=== PATIENT | male | born 1950 | race American Indian/Alaskan Native ===

== ENCOUNTER 2017-05-12 13:28 | Inpatient (IN) | payer MEDICARE, MEDICAID ==
[2017-05-12 13:32] VITALS: BMI 24.4
[2017-05-12] MEDS ORDERED: Sodium Chloride 0.9% 1,000 ML IV STA (13:33)
--- NOTE | 2017-05-12 14:04 | ED PDOC ---
HPI:Nausea, Vomiting, Diarrhea Time Seen by Provider: 05/12/17 13:33 Chief Complaint (Nursing): GI Problem Chief Complaint (Provider): vomiting, weakness History Per: EMS, Other (MD paperwork) History/Exam Limitations: other (MD paperwork is blank on arrival) Current Symptoms Are (Timing): Still Present Quality Of Discomfort: Unable To Describe Associated Symptoms: Vomiting Additional Complaint(s): 66yo male arrives from rehab facility EMS reported vomiting several episodes with generalized weakness. Patient is nonverbal s/p CVA, will answer with gestures, denies abdominal pain, headache or chest pain. History is limited as MD paperwork was blank on arrival. Past Medical History Reviewed: Historical Data, Nursing Documentation, Vital Signs Vital Signs: Last Vital Signs Temp 98.5 F 05/12/17 13:31 Pulse 89 05/12/17 13:31 Resp 17 05/12/17 13:31 BP 110/53 L 05/12/17 13:31 Pulse Ox 96 05/12/17 13:31 - Medical History PMH: CVA, Diabetes, HTN - Surgical History Other surgeries: PEG - Family History Family History: States: Unknown Family Hx - Living Arrangements Living Arrangements: Correction/Assist Lvng - Social History Current smoker - smoking cessation education provided: No - Home Medications Home Medications: Ambulatory Orders Medication Instructions Recorded Acetaminophen [Tylenol 325mg tab] 650 mg GT Q4H PRN 05/12/17 Acetaminophen [Tylenol 325mg tab] 650 mg GT Q4H PRN 05/12/17 Aspirin [Aspirin] 325 mg GT DAILY 05/12/17 Carvedilol [Coreg] 12.5 mg GT Q12H 05/12/17 Escitalopram [Lexapro] 5 mg GT DAILY 05/12/17 Heparin [Heparin] 5,000 unit SC Q8H 05/12/17 Insulin Lispro [humALOG] 2 - 10 unit SC ACHS 05/12/17 Lisinopril [Zestril] 20 mg GT DAILY 05/12/17 Mag Hydrox/Aluminum Hyd/Simeth 30 ml PO Q4H PRN 05/12/17 [Maalox Advanced Suspension] Magnesium Hydroxide [Milk Of 30 ml PO DAILY PRN 05/12/17 Magnesia] Pantoprazole Sodium [Protonix] 40 mg GT DAILY 05/12/17 Rosuvastatin Calcium [Crestor] 10 mg GT HS 05/12/17 Silver Sulfadiazine 1% [Silvadene 1 appl TOP QSHIFT 05/12/17 1%] amLODIPine [Norvasc] 10 mg GT DAILY 05/12/17 levoFLOXacin [Levaquin] 750 mg GT QPM 05/12/17 - Allergies Allergies/Adverse Reactions: Allergies Allergy/AdvReac Type Severity Reaction Status Date / Time No Known Allergies Allergy Verified 05/12/17 13:29 Review of Systems Review Of Systems: ROS cannot be obtained secondary to pt's inabilty to answer questions. Physical Exam - Reviewed Nursing Documentation Reviewed: Yes Vital Signs Reviewed: Yes - Physical Exam Appears: Positive for: Non-toxic, Uncomfortable (generalized weakness) Head Exam: Positive for: ATRAUMATIC, NORMAL INSPECTION, NORMOCEPHALIC Skin: Positive for: Warm, Pallor Eye Exam: Positive for: EOMI, Normal appearance, PERRL ENT: Positive for: Normal ENT Inspection Neck: Positive for: Normal, Painless ROM Cardiovascular/Chest: Positive for: Regular Rate, Rhythm Respiratory: Positive for: CNT, Normal Breath Sounds Gastrointestinal/Abdominal: Positive for: Bowel Sounds, Soft, Other (peg). Negative for: Tenderness Back: Positive for: Normal Inspection Extremity: Negative for: Deformity, Swelling Neurologic/Psych: Positive for: Alert, Motor/Sensory Deficits (R hemiparess), Mood/Affect (flat), Aphasia - ECG O2 Sat by Pulse Oximetry: 96 Medical Decision Making Medical Decision Making: workup for vomiting w generalized weakness Labs from MD reviewed 05/09 reveal Hgb in mid 8's. Type/screen ordered IVF bolus, labs, lactate, EKG, CXR ordered/ Disposition - Disposition
[2017-05-12 14:12] LABS: VENOUS BLOOD GAS BASE EXCESS 15.7 mmol/L (0.0-2.0); VENOUS BLOOD GAS PCO2 51 mmHg (40-60); VENOUS BLOOD GAS PO2 37 mm/Hg (30-55); VENOUS BLOOD PH 7.51 (7.32-7.43)
[2017-05-12 14:19] LABS: BASO % 0.4 % (0.0-2.0); EOS % 0.3 % (0.0-4.0); HEMOGLOBIN 9.5 g/dL (12.0-18.0); LYMPH # 1.3 K/uL (1.0-4.3); LYMPH % 13.2 % (20.0-40.0); MEAN CELL VOLUME 94.4 fl (80.0-94.0); MEAN CORPUSCULAR HEMOGLOBIN 31.2 pg (27.0-31.0); MEAN CORPUSCULAR HGB CONC 33.1 g/dL (33.0-37.0); MEAN PLATELET VOLUME 8.3 fl (7.2-11.7); MONO # 0.7 K/uL (0.0-0.8); MONO % 7.3 % (0.0-10.0); NEUT # 7.8 K/uL (1.8-7.0); NEUT % 78.8 % (50.0-75.0); RBC 3.05 Mil/uL (4.40-5.90); RED CELL DISTRIBUTION WIDTH 13.3 % (11.5-14.5); WHITE BLOOD COUNT 9.9 K/uL (4.8-10.8)
[2017-05-12 14:30] LABS: INR 1.3 (0.9-1.2); PARTIAL THROMBOPLASTIN TIME 35.3 Seconds (25.6-37.1); PROTHROMBIN TIME 14.1 Seconds (9.8-13.1)
[2017-05-12 15:12] LABS: URINE BACTERIA RARE (<OCC); URINE BILIRUBIN NEGATIVE (NEGATIVE); URINE BLOOD NEGATIVE (NEGATIVE); URINE CLARITY CLOUDY (Clear); URINE COLOR AMBER (YELLOW); URINE GLUCOSE (UA) 50 mg/dL (Normal); URINE LEUKOCYTE ESTERASE NEG Leu/uL (Negative); URINE NITRATE NEGATIVE (NEGATIVE); URINE PROTEIN 30 mg/dL (NEGATIVE)
--- NOTE | 2017-05-12 16:12 | RAD ---
HISTORY: Weakness. Portable study 13:45 COMPARISON: No prior. FINDINGS: LUNGS: Faint infiltrates right upper lobe, right lower lobe. PLEURA: No significant pleural effusion identified, no pneumothorax apparent. CARDIOVASCULAR: No radiographic findings to suggest acute or significant cardiovascular disease. OSSEOUS STRUCTURES: No significant abnormalities. VISUALIZED UPPER ABDOMEN: Normal. OTHER FINDINGS: None. IMPRESSION: Infiltrates right upper lobe, right lower lobe. Otherwise unremarkable study.
[2017-05-12 16:28] LABS: ALB/GLOB RATIO 0.8 (1.0-2.1); ALBUMIN 3.6 g/dL (3.5-5.0)
[2017-05-12 16:36] LABS: TROPONIN I 0.019 ng/mL (0.00-0.120)
[2017-05-12] MEDS ORDERED: Alum-Mag Hydrox-Simethicone Susp (30 mL) PO PRN (18:41)
[2017-05-12] MEDS ORDERED: Magnesium Hydroxide Susp 30 ml UD PO PRN (18:41)
--- NOTE | 2017-05-12 19:42 | US ---
EXAM: US Abdomen Limited, Right Upper Quadrant EXAM DATE/TIME: 05/12/2017 4:34 PM CLINICAL HISTORY: 66 years old, male; Signs and symptoms; Vomiting; Additional info: Vomiting abnormal lfts TECHNIQUE: Real-time ultrasound of the right upper quadrant with image documentation. COMPARISON: There are no prior studies for comparison. FINDINGS: Liver: There is hepatopedal flow in the main portal vein. Liver is unremarkable. Gallbladder: Gallbladder is completely distended. Gallbladder wall measures approximately 3 mm in width. There are no large shadowing stones. There is no sludge.. Common bile duct: Common bile duct measures 8 mm in the ricci hepatis. Pancreas: Pancreas is partially obscured by bowel gas. Pancreatic duct is partially visualized. Duct measures approximately 2 mm in diameter. Right kidney: Right kidney is unremarkable. Aorta: Visualized portions of the aorta and inferior vena cava are unremarkable. IMPRESSION: Slightly limited evaluation of the gallbladder due to incomplete distention, gallbladder wall thickening, underdistention versus true thickening, no shadowing stones; mildly prominent common duct Patient was not tender over the gallbladder
[2017-05-12] MEDS: Sodium Chloride 0.9% 1,000 ML IV SCH (20:49)
--- NOTE | 2017-05-12 20:59 | CP.PCM.CON ---
<PacotameraVasquez - Last Filed: 05/12/17 20:57> History of Present Illness - History of Present Illness History of Present Illness: General Surgery Consult for Dr. Fernandez This is a 66M averbal s/p CVA who was admitted for abdominal pain which is now resolved. He only communicated via nods. He denies any pain, fevers, chills nause, vomiting diarrhea. Per nursing he has a history of HTN, cared for by his daughter. PMH: HTN possibly more PSH: PEG ALL: unknown Review of Systems - Review of Systems All systems: reviewed and no additional remarkable complaints except - Constitutional Constitutional: absent: Anorexia, Chills - Gastrointestinal Gastrointestinal: absent: Abdominal Pain, Diarrhea, Loose Stools, Nausea, Vomiting Past Patient History - Past Social History Smoking Status: Unknown If Ever Smoked - CARDIAC Hx Hypertension: Yes - NEUROLOGICAL HX Cerebrovascular Accident: Yes - ENDOCRINE/METABOLIC Hx Endocrine Disorders: Yes - PSYCHIATRIC Hx Substance Use: No - SURGICAL HISTORY Hx Surgeries: No Other/Comment: gt - ANESTHESIA Hx Anesthesia: Yes Meds Allergies/Adverse Reactions: Allergies Allergy/AdvReac Type Severity Reaction Status Date / Time No Known Allergies Allergy Verified 05/12/17 13:29 - Medications Medications: Current Medications Acetaminophen (Tylenol 325mg Tab) 650 mg GT Q4H PRN PRN Reason: Temp >100 Acetaminophen (Tylenol 325mg Tab) 650 mg GT Q4H PRN PRN Reason: Pain, Mild (1-3) Al Hydrox/Mg Hydrox/Simethicone (Maalox Plus 30 Ml) 30 ml PO Q4H PRN PRN Reason: heartburn/indigestion Amlodipine Besylate (Norvasc) 10 mg GT DAILY [facility] Aspirin (Aspirin) 325 mg GT DAILY [facility] Atorvastatin Calcium (Lipitor) 20 mg GT HS [facility] Carvedilol (Coreg) 12.5 mg GT Q12H [facility] Escitalopram Oxalate (Lexapro) 5 mg GT DAILY [facility] Famotidine (Pepcid) 20 mg IVP Q12 [facility] Heparin Sodium (Porcine) (Heparin) 5,000 units SC Q8H [facility] PRN Reason: Protocol Sodium Chloride (Sodium Chloride 0.9%) 1,000 mls @ 125 mls/hr IV .Q8H DIMITRY Stop: 05/13/17 18:32 Last Admin: 01/23/18 20:49 Dose: 125 mls/hr Insulin Human Lispro (Humalog) 0 units SC ACHS DIMITRY PRN Reason: Protocol Levofloxacin (Levaquin) 750 mg PO QPM [facility] Lisinopril (Zestril) 20 mg GT DAILY [facility] Magnesium Hydroxide (Milk Of Magnesia) 30 ml PO DAILY PRN PRN Reason: Constipation Ondansetron HCl (Zofran Inj) 4 mg IVP Q6 PRN PRN Reason: Nausea/Vomiting Pantoprazole Sodium (Protonix Inj) 40 mg IVP DAILY [facility] Silver Sulfadiazine (Silvadene 1% 20 Gm) 1 ea TOP QSHIFT [facility] Physical Exam - Constitutional Appears: Non-toxic - Head Exam Head Exam: ATRAUMATIC, NORMOCEPHALIC Additional comments: Left sided droop - Respiratory Exam Respiratory Exam: NORMAL BREATHING PATTERN - Cardiovascular Exam Cardiovascular Exam: +S1, +S2 - GI/Abdominal Exam GI & Abdominal Exam: Soft. absent: Distended, Guarding, Tenderness Additional comments: No murphys, peg present Results - Vital Signs Recent Vital Signs: Last Vital Signs Temp 98.1 F 05/12/17 18:56 Pulse 89 05/12/17 18:56 Resp 20 05/12/17 18:56 BP 144/69 05/12/17 18:56 Pulse Ox 100 05/12/17 18:56 - Labs Result Diagrams: 05/12/17 13:55 05/12/17 15:10 Labs: Laboratory Results - last 24 hr 05/12/17 05/12/17 05/12/17 13:45 13:51 13:55 WBC 9.9 RBC 3.05 L Hgb 9.5 L Hct 28.8 L MCV 94.4 H MCH 31.2 H MCHC 33.1 RDW 13.3 Plt Count 299 MPV 8.3 Neut % (Auto) 78.8 H Lymph % (Auto) 13.2 L [place] % (Auto) 7.3 Eos % (Auto) 0.3 Baso % (Auto) 0.4 Neut # 7.8 H Lymph # 1.3 [place] # 0.7 Eos # 0.0 Baso # 0.0 PT INR APTT pO2 37 VBG pH 7.51 H VBG pCO2 51 VBG HCO3 36.6 VBG Total CO2 42.3 H VBG O2 Sat (Calc) 75.3 H VBG Base Excess 15.7 H VBG Potassium 5.6 H Sodium 135.0 Chloride 102.0 Glucose 331 H Lactate 2.1 FiO2 21.0 Potassium Carbon Dioxide Anion Gap BUN Creatinine Est GFR ( Amer) Est GFR (Non-Af Amer) POC Glucose (mg/dL) 291 H Random Glucose Calcium Total Bilirubin AST ALT Alkaline Phosphatase Troponin I Total Protein Albumin Globulin Albumin/Globulin Ratio Lipase Venous Blood Potassium 5.6 H Urine Color Urine Clarity Urine pH Ur Specific [place] Urine Protein Urine Glucose (UA) Urine Ketones Urine Blood Urine Nitrate Urine Bilirubin Urine Urobilinogen Ur Leukocyte Esterase Urine RBC (Auto) Urine Microscopic WBC Urine Bacteria Hyaline Casts Blood Type Antibody Screen BBK History Checked 05/12/17 05/12/17 05/12/17 13:55 14:14 14:54 WBC RBC Hgb Hct MCV MCH MCHC RDW Plt Count MPV Neut % (Auto) Lymph % (Auto) [place] % (Auto) Eos % (Auto) Baso % (Auto) Neut # Lymph # [place] # Eos # Baso # PT 14.1 H INR 1.3 H APTT 35.3 pO2 VBG pH VBG pCO2 VBG HCO3 VBG Total CO2 VBG O2 Sat (Calc) VBG Base Excess VBG Potassium Sodium Chloride Glucose Lactate FiO2 Potassium Carbon Dioxide Anion Gap BUN Creatinine Est GFR ( Amer) Est GFR (Non-Af Amer) POC Glucose (mg/dL) Random Glucose Calcium Total Bilirubin AST ALT Alkaline Phosphatase Troponin I Total Protein Albumin Globulin Albumin/Globulin Ratio Lipase Venous Blood Potassium Urine Color Elisa Urine Clarity Cloudy Urine pH 7.0 Ur Specific [place] 1.019 Urine Protein 30 Urine Glucose (UA) 50 Urine Ketones Negative Urine Blood Negative Urine Nitrate Negative Urine Bilirubin Negative Urine Urobilinogen 4.0 Ur Leukocyte Esterase Neg Urine RBC (Auto) 7 H Urine Microscopic WBC 5 Urine Bacteria Rare Hyaline Casts 6-10 H Blood Type B POSITIVE Antibody Screen Negative BBK History Checked Patient has bt 05/12/17 15:10 WBC RBC Hgb Hct MCV MCH MCHC RDW Plt Count MPV Neut % (Auto) Lymph % (Auto) [place] % (Auto) Eos % (Auto) Baso % (Auto) Neut # Lymph # [place] # Eos # Baso # PT INR APTT pO2 VBG pH VBG pCO2 VBG HCO3 VBG Total CO2 VBG O2 Sat (Calc) VBG Base Excess VBG Potassium Sodium 140 Chloride 94 L Glucose Lactate FiO2 Potassium 5.1 H Carbon Dioxide 33 H Anion Gap 18 BUN 46 H Creatinine 1.7 H Est GFR ( Amer) 49 Est GFR (Non-Af Amer) 41 POC Glucose (mg/dL) Random Glucose 313 H Calcium 10.0 Total Bilirubin 1.2 AST 259 H D ALT 252 H Alkaline Phosphatase 874 H D Troponin I 0.0190 Total Protein 8.2 Albumin 3.6 Globulin 4.5 H Albumin/Globulin Ratio 0.8 L Lipase 4912 H Venous Blood Potassium Urine Color Urine Clarity Urine pH Ur Specific [place] Urine Protein Urine Glucose (UA) Urine Ketones Urine Blood Urine Nitrate Urine Bilirubin Urine Urobilinogen Ur Leukocyte Esterase Urine RBC (Auto) Urine Microscopic WBC Urine Bacteria Hyaline Casts Blood Type Antibody Screen BBK History Checked Assessment & Plan - Assessment and Plan (Free Text) Assessment: 66M with pancreatitis US shows inderterminent evaluation of GB and ducts with no stones MRCP ordered will follow up D/W Dr. Jim Pineda PGY2 <Temo Fernandez - Last Filed: 05/13/17 14:53> History of Present Illness - History of Present Illness History of Present Illness: Patient was seen and examined at the bedside. Agree with resident's note above. Meds - Medications Medications: Current Medications Acetaminophen (Tylenol 325mg Tab) 650 mg GT Q4H PRN PRN Reason: Temp >100 Acetaminophen (Tylenol 325mg Tab) 650 mg GT Q4H PRN PRN Reason: Pain, Mild (1-3) Al Hydrox/Mg Hydrox/Simethicone (Maalox Plus 30 Ml) 30 ml PO Q4H PRN PRN Reason: heartburn/indigestion Amlodipine Besylate (Norvasc) 10 mg GT DAILY [facility] Last Admin: 05/13/17 08:54 Dose: 10 mg Aspirin (Aspirin) 325 mg GT DAILY [facility] Atorvastatin Calcium (Lipitor) 20 mg GT HS [facility] Last Admin: 05/12/17 21:03 Dose: 20 mg Carvedilol (Coreg) 12.5 mg GT Q12H [facility] Last Admin: 05/13/17 06:39 Dose: 12.5 mg Escitalopram Oxalate (Lexapro) 5 mg GT DAILY [facility] Last Admin: 05/13/17 08:53 Dose: 5 mg Famotidine (Pepcid) 20 mg IVP Q12 [facility] Last Admin: 05/13/17 09:04 Dose: 20 mg Heparin Sodium (Porcine) (Heparin) 5,000 units SC Q8H [facility] PRN Reason: Protocol Last Admin: 05/13/17 03:45 Dose: 5,000 units Sodium Chloride (Sodium Chloride 0.9%) 1,000 mls @ 125 mls/hr IV .Q8H [facility] Stop: 05/13/17 18:32 Last Admin: 05/13/17 03:50 Dose: 125 mls/hr Insulin Human Lispro (Humalog) 0 units SC ACHS [facility] PRN Reason: Protocol Last Admin: 05/13/17 08:55 Dose: Not Given Levofloxacin (Levaquin) 750 mg PO QPM [facility] Lisinopril (Zestril) 20 mg GT DAILY [facility] Last Admin: 05/13/17 08:54 Dose: 20 mg Magnesium Hydroxide (Milk Of Magnesia) 30 ml PO DAILY PRN PRN Reason: Constipation Ondansetron HCl (Zofran Inj) 4 mg IVP Q6 PRN PRN Reason: Nausea/Vomiting Pantoprazole Sodium (Protonix Inj) 40 mg IVP DAILY [facility] Last Admin: 05/13/17 08:53 Dose: 40 mg Silver Sulfadiazine (Silvadene 1% 20 Gm) 1 ea TOP QSHIFT [facility] Results - Vital Signs Recent Vital Signs: Last Vital Signs Temp 97.9 F 05/13/17 08:05 Pulse 75 05/13/17 08:54 Resp 20 05/13/17 08:05 BP 148/76 05/13/17 08:54 Pulse Ox 96 05/13/17 08:05 - Labs Result Diagrams: 05/13/17 05:45 05/13/17 05:45 Labs: Laboratory Results - last 24 hr 05/12/17 05/12/17 05/12/17 13:51 14:14 14:54 WBC RBC Hgb Hct MCV MCH MCHC RDW Plt Count MPV Neut % (Auto) Lymph % (Auto) [place] % (Auto) Eos % (Auto) Baso % (Auto) Neut # Lymph # [place] # Eos # Baso # Sodium Potassium Chloride Carbon Dioxide Anion Gap BUN Creatinine Est GFR ( Amer) Est GFR (Non-Af Amer) POC Glucose (mg/dL) 291 H Random Glucose Calcium Total Bilirubin AST ALT Alkaline Phosphatase Troponin I Total Protein Albumin Globulin Albumin/Globulin Ratio Lipase Urine Color Elisa Urine Clarity Cloudy Urine pH 7.0 Ur Specific [place] 1.019 Urine Protein 30 Urine Glucose (UA) 50 Urine Ketones Negative Urine Blood Negative Urine Nitrate Negative Urine Bilirubin Negative Urine Urobilinogen 4.0 Ur Leukocyte Esterase Neg Urine RBC (Auto) 7 H Urine Microscopic WBC 5 Urine Bacteria Rare Hyaline Casts 6-10 H Blood Type B POSITIVE Antibody Screen Negative BBK History Checked Patient has bt 05/12/17 05/12/17 05/13/17 15:10 21:21 05:45 WBC 7.6 RBC 2.77 L Hgb 8.7 L Hct 26.6 L MCV 95.9 H MCH 31.4 H MCHC 32.8 L RDW 13.3 Plt Count 249 MPV 8.6 Neut % (Auto) 74.2 Lymph % (Auto) 14.6 L [place] % (Auto) 8.1 Eos % (Auto) 2.6 Baso % (Auto) 0.5 Neut # 5.6 Lymph # 1.1 [place] # 0.6 Eos # 0.2 Baso # 0.0 Sodium 140 Potassium 5.1 H Chloride 94 L Carbon Dioxide 33 H Anion Gap 18 BUN 46 H Creatinine 1.7 H Est GFR ( Amer) 49 Est GFR (Non-Af Amer) 41 POC Glucose (mg/dL) 238 H Random Glucose 313 H Calcium 10.0 Total Bilirubin 1.2 AST 259 H D ALT 252 H Alkaline Phosphatase 874 H D Troponin I 0.0190 Total Protein 8.2 Albumin 3.6 Globulin 4.5 H Albumin/Globulin Ratio 0.8 L Lipase 4912 H Urine Color Urine Clarity Urine pH Ur Specific [place] Urine Protein Urine Glucose (UA) Urine Ketones Urine Blood Urine Nitrate Urine Bilirubin Urine Urobilinogen Ur Leukocyte Esterase Urine RBC (Auto) Urine Microscopic WBC Urine Bacteria Hyaline Casts Blood Type Antibody Screen BBK History Checked 05/13/17 05/13/17 05:45 05:45 WBC RBC Hgb Hct MCV MCH MCHC RDW Plt Count MPV Neut % (Auto) Lymph % (Auto) [place] % (Auto) Eos % (Auto) Baso % (Auto) Neut # Lymph # [place] # Eos # Baso # Sodium 143 Potassium 4.4 Chloride 101 Carbon Dioxide 32 H Anion Gap 14 BUN 39 H Creatinine 1.2 Est GFR ( Amer) > 60 Est GFR (Non-Af Amer) > 60 POC Glucose (mg/dL) 240 H Random Glucose 239 H Calcium 9.3 Total Bilirubin 1.3 AST 190 H D ALT 223 H Alkaline Phosphatase 733 H Troponin I Total Protein 7.3 Albumin 3.2 L Globulin 4.1 H Albumin/Globulin Ratio 0.8 L Lipase 4155 H Urine Color Urine Clarity Urine pH Ur Specific [place] Urine Protein Urine Glucose (UA) Urine Ketones Urine Blood Urine Nitrate Urine Bilirubin Urine Urobilinogen Ur Leukocyte Esterase Urine RBC (Auto) Urine Microscopic WBC Urine Bacteria Hyaline Casts Blood Type Antibody Screen BBK History Checked - Imaging and Cardiology US - abdomen Status: Image reviewed by me, Report reviewed by me Assessment & Plan - Assessment and Plan (Free Text) Plan: - Keep NPO - IV fluids - MRCP - Repeat labs in am - Will follow
[2017-05-12] MEDS: Insulin Lispro (humaLOG) 100 Units/ml Inj SC SCH (21:56)
[2017-05-13] MEDS: Sodium Chloride 0.9% 1,000 ML IV SCH ×2 (03:50→10:28)
[2017-05-13 06:38] LABS: ALB/GLOB RATIO 0.8 (1.0-2.1); ALBUMIN 3.2 g/dL (3.5-5.0); ALT/SGPT 223 U/L (21-72); AST/SGOT 190 U/L (17-59); BASO % 0.5 % (0.0-2.0); BLOOD UREA NITROGEN 39 mg/dl (9-20); CALCIUM 9.3 mg/dL (8.4-10.2); EOS # 0.2 K/uL (0.0-0.7); EOS % 2.6 % (0.0-4.0); GFR AFRICAN-AMERICAN > 60; GFR NON-AFRICAN AMERICAN > 60; HEMOGLOBIN 8.7 g/dL (12.0-18.0); LYMPH # 1.1 K/uL (1.0-4.3); LYMPH % 14.6 % (20.0-40.0); MEAN CELL VOLUME 95.9 fl (80.0-94.0); MEAN CORPUSCULAR HEMOGLOBIN 31.4 pg (27.0-31.0); MEAN CORPUSCULAR HGB CONC 32.8 g/dL (33.0-37.0); MEAN PLATELET VOLUME 8.6 fl (7.2-11.7); MONO # 0.6 K/uL (0.0-0.8); MONO % 8.1 % (0.0-10.0); NEUT # 5.6 K/uL (1.8-7.0); NEUT % 74.2 % (50.0-75.0); RBC 2.77 Mil/uL (4.40-5.90); RED CELL DISTRIBUTION WIDTH 13.3 % (11.5-14.5); WHITE BLOOD COUNT 7.6 K/uL (4.8-10.8)
[2017-05-13 07:02] LABS: LIPASE 4155 U/L (23-300)
[2017-05-13] MEDS: Insulin Lispro (humaLOG) 100 Units/ml Inj SC SCH ×4 (08:55→21:43)
[2017-05-13] MEDS ORDERED: Pantoprazole 40 mg EC Tab PO SCH (09:00)
--- NOTE | 2017-05-13 11:08 | CARD ---
APPROVED REPORT EKG Measurement Heart [id number] <Conclusion> Normal sinus rhythm Possible Left atrial enlargement Left ventricular hypertrophy T wave abnormality, consider lateral ischemia Prolonged QT Abnormal ECG
--- NOTE | 2017-05-13 12:03 | CP.PCM.PN ---
<Aleja Chapa - Last Filed: 05/13/17 12:01> Subjective - Date & Time of Evaluation Date of Evaluation: 05/13/17 Time of Evaluation: 10:30 - Subjective Subjective: General surgery consult for Dr. Fernandez-Aleja Chaap, PGY-1 Pt S & E at bedside. Pt sleeping, unarousable to verbal or tactile stimuli. Per nursing- no acute events overnight, this is pt's baseline arousability. Objective - Vital Signs/Intake and Output Vital Signs (last 24 hours): Temp Pulse Resp BP Pulse Ox 97.9 F 75 20 148/76 96 05/13/17 08:05 05/13/17 08:54 05/13/17 08:05 05/13/17 08:54 05/13/17 08:05 - Medications Medications: Current Medications Acetaminophen (Tylenol 325mg Tab) 650 mg GT Q4H PRN PRN Reason: Temp >100 Acetaminophen (Tylenol 325mg Tab) 650 mg GT Q4H PRN PRN Reason: Pain, Mild (1-3) Al Hydrox/Mg Hydrox/Simethicone (Maalox Plus 30 Ml) 30 ml PO Q4H PRN PRN Reason: heartburn/indigestion Amlodipine Besylate (Norvasc) 10 mg GT DAILY REPLACED BY [facility] Last Admin: 05/13/17 08:54 Dose: 10 mg Aspirin (Aspirin) 325 mg GT DAILY REPLACED BY [facility] Atorvastatin Calcium (Lipitor) 20 mg GT HS REPLACED BY [facility] Last Admin: 05/12/17 21:03 Dose: 20 mg Carvedilol (Coreg) 12.5 mg GT Q12H REPLACED BY [facility] Last Admin: 05/13/17 06:39 Dose: 12.5 mg Escitalopram Oxalate (Lexapro) 5 mg GT DAILY REPLACED BY [facility] Last Admin: 05/13/17 08:53 Dose: 5 mg Famotidine (Pepcid) 20 mg IVP Q12 REPLACED BY [facility] Last Admin: 05/13/17 09:04 Dose: 20 mg Heparin Sodium (Porcine) (Heparin) 5,000 units SC Q8H REPLACED BY [facility] PRN Reason: Protocol Last Admin: 05/13/17 03:45 Dose: 5,000 units Sodium Chloride (Sodium Chloride 0.9%) 1,000 mls @ 125 mls/hr IV .Q8H REPLACED BY [facility] Stop: 05/13/17 18:32 Last Admin: 05/13/17 03:50 Dose: 125 mls/hr Insulin Human Lispro (Humalog) 0 units SC ACHS REPLACED BY [facility] PRN Reason: Protocol Last Admin: 05/13/17 08:55 Dose: Not Given Levofloxacin (Levaquin) 750 mg PO QPM REPLACED BY [facility] Lisinopril (Zestril) 20 mg GT DAILY REPLACED BY [facility] Last Admin: 05/13/17 08:54 Dose: 20 mg Magnesium Hydroxide (Milk Of Magnesia) 30 ml PO DAILY PRN PRN Reason: Constipation Ondansetron HCl (Zofran Inj) 4 mg IVP Q6 PRN PRN Reason: Nausea/Vomiting Pantoprazole Sodium (Protonix Inj) 40 mg IVP DAILY REPLACED BY [facility] Last Admin: 05/13/17 08:53 Dose: 40 mg Silver Sulfadiazine (Silvadene 1% 20 Gm) 1 ea TOP QSHIFT REPLACED BY [facility] - Labs Labs: 05/13/17 05:45 05/13/17 05:45 PT 14.1 Seconds (9.8-13.1) H 05/12/17 13:55 INR 1.3 (0.9-1.2) H 05/12/17 13:55 APTT 35.3 Seconds (25.6-37.1) 05/12/17 13:55 - Constitutional Appears: Non-toxic, No Acute Distress - Head Exam Head Exam: ATRAUMATIC, NORMAL INSPECTION, NORMOCEPHALIC - ENT Exam ENT Exam: Mucous Membranes Moist, Normal Exam - Neck Exam Neck Exam: Full ROM, Normal Inspection - Respiratory Exam Respiratory Exam: NORMAL BREATHING PATTERN - Cardiovascular Exam Cardiovascular Exam: REGULAR RHYTHM, +S1, +S2 - GI/Abdominal Exam GI & Abdominal Exam: Soft. absent: Distended, Firm, Guarding, Rigid, Tenderness Additional comments: PEG tube in place - Extremities Exam Extremities Exam: Normal Inspection - Neurological Exam Neurological Exam: absent: Alert, Awake, Oriented x3 Additional comments: unarousable to verbal or tactile stimuli - Psychiatric Exam Psychiatric exam: absent: Normal Affect, Normal Mood - Skin Skin Exam: Dry, Intact, Normal Color, Warm Assessment and Plan - Assessment and Plan (Free Text) Assessment: 66M with pancreatitis Plan: FU MRCP Further recs pending imaging Will DW attending Sammi, PGY-1 <Temo Fernandez - Last Filed: 05/13/17 14:58> Subjective - Date & Time of Evaluation Time of Evaluation: 12:30 - Subjective Subjective: Patient was seen and examined at the bedside. Agree with resident's note above. Objective - Vital Signs/Intake and Output Vital Signs (last 24 hours): Temp Pulse Resp BP Pulse Ox 97.9 F 75 20 148/76 96 05/13/17 08:05 05/13/17 08:54 05/13/17 08:05 05/13/17 08:54 05/13/17 08:05 - Medications Medications: Current Medications Acetaminophen (Tylenol 325mg Tab) 650 mg GT Q4H PRN PRN Reason: Temp >100 Acetaminophen (Tylenol 325mg Tab) 650 mg GT Q4H PRN PRN Reason: Pain, Mild (1-3) Al Hydrox/Mg Hydrox/Simethicone (Maalox Plus 30 Ml) 30 ml PO Q4H PRN PRN Reason: heartburn/indigestion Amlodipine Besylate (Norvasc) 10 mg GT DAILY REPLACED BY [facility] Last Admin: 05/13/17 08:54 Dose: 10 mg Aspirin (Aspirin) 325 mg GT DAILY REPLACED BY [facility] Atorvastatin Calcium (Lipitor) 20 mg GT HS REPLACED BY [facility] Last Admin: 05/12/17 21:03 Dose: 20 mg Carvedilol (Coreg) 12.5 mg GT Q12H REPLACED BY [facility] Last Admin: 05/13/17 06:39 Dose: 12.5 mg Escitalopram Oxalate (Lexapro) 5 mg GT DAILY REPLACED BY [facility] Last Admin: 05/13/17 08:53 Dose: 5 mg Famotidine (Pepcid) 20 mg IVP Q12 REPLACED BY [facility] Last Admin: 05/13/17 09:04 Dose: 20 mg Heparin Sodium (Porcine) (Heparin) 5,000 units SC Q8H REPLACED BY [facility] PRN Reason: Protocol Last Admin: 05/13/17 03:45 Dose: 5,000 units Sodium Chloride (Sodium Chloride 0.9%) 1,000 mls @ 125 mls/hr IV .Q8H REPLACED BY [facility] Stop: 05/13/17 18:32 Last Admin: 05/13/17 03:50 Dose: 125 mls/hr Insulin Human Lispro (Humalog) 0 units SC ACHS REPLACED BY [facility] PRN Reason: Protocol Last Admin: 05/13/17 08:55 Dose: Not Given Levofloxacin (Levaquin) 750 mg PO QPM REPLACED BY [facility] Lisinopril (Zestril) 20 mg GT DAILY REPLACED BY [facility] Last Admin: 05/13/17 08:54 Dose: 20 mg Magnesium Hydroxide (Milk Of Magnesia) 30 ml PO DAILY PRN PRN Reason: Constipation Ondansetron HCl (Zofran Inj) 4 mg IVP Q6 PRN PRN Reason: Nausea/Vomiting Pantoprazole Sodium (Protonix Inj) 40 mg IVP DAILY REPLACED BY [facility] Last Admin: 05/13/17 08:53 Dose: 40 mg Silver Sulfadiazine (Silvadene 1% 20 Gm) 1 ea TOP QSHIFT REPLACED BY [facility] - Labs Labs: 05/13/17 05:45 05/13/17 05:45 PT 14.1 Seconds (9.8-13.1) H 05/12/17 13:55 INR 1.3 (0.9-1.2) H 05/12/17 13:55 APTT 35.3 Seconds (25.6-37.1) 05/12/17 13:55
--- NOTE | 2017-05-13 14:49 | CP.PCM.HP ---
History of Present Illness - History of Present Illness History of Present Illness: pt awake nonverbal s/p cva w/ elev lft, elev lipase. had abd pain, n/v at [facility]. no f/c, n/v/d at [facility]. bw noted. lft trending down, surgical consult appriciated. mrcp completed, no report. gi consult pending. tube feedings held. Present on Admission - Present on Admission Any Indicators Present on Admission: No Review of Systems - Gastrointestinal Gastrointestinal: As Per HPI, Abdominal Pain, Nausea, Vomiting Past Patient History - Past Medical History & Family History Past Medical History?: Yes - Past Social History Smoking Status: Unknown If Ever Smoked - CARDIAC Hx Hypertension: Yes - PULMONARY Hx Respiratory Disorders: No - NEUROLOGICAL HX Cerebrovascular Accident: Yes - HEENT Hx HEENT Problems: No - RENAL Hx Chronic Kidney Disease: No - ENDOCRINE/METABOLIC Hx Endocrine Disorders: Yes - HEMATOLOGICAL/ONCOLOGICAL Hx Blood Disorders: No - INTEGUMENTARY Hx Dermatological Problems: No - MUSCULOSKELETAL/RHEUMATOLOGICAL Hx Musculoskeletal Disorders: No Hx Falls: No - GASTROINTESTINAL Hx Gastrointestinal Disorders: No - GENITOURINARY/GYNECOLOGICAL Hx Genitourinary Disorders: Yes Hx Incontinence: Yes - PSYCHIATRIC Hx Substance Use: No - SURGICAL HISTORY Hx Surgeries: No Other/Comment: gt - ANESTHESIA Hx Anesthesia: Yes Meds Allergies/Adverse Reactions: Allergies Allergy/AdvReac Type Severity Reaction Status Date / Time No Known Allergies Allergy Verified 05/12/17 13:29 Physical Exam - Constitutional Appears: Well, Non-toxic, No Acute Distress - Head Exam Head Exam: ATRAUMATIC, NORMAL INSPECTION, NORMOCEPHALIC - Eye Exam Eye Exam: EOMI, Normal appearance, PERRL Pupil Exam: NORMAL ACCOMODATION, PERRL - ENT Exam ENT Exam: Mucous Membranes Moist, Normal Exam - Neck Exam Neck exam: Positive for: Normal Inspection - Respiratory Exam Respiratory Exam: Clear to Auscultation Bilateral, NORMAL BREATHING PATTERN - Cardiovascular Exam Cardiovascular Exam: REGULAR RHYTHM, RRR, +S1, +S2 - GI/Abdominal Exam GI & Abdominal Exam: Normal Bowel Sounds, Soft. absent: Tenderness Additional comments: gtube noted - Rectal Exam Rectal Exam: NORMAL INSPECTION - Extremities Exam Extremities exam: Positive for: full ROM, normal capillary refill, normal inspection, pedal pulses present - Back Exam Back exam: NORMAL INSPECTION - Neurological Exam Neurological exam: Alert, CN II-XII Intact, Normal Gait, Oriented x3, Reflexes Normal - Psychiatric Exam Psychiatric exam: Normal Affect, Normal Mood - Skin Skin Exam: Dry, Intact, Normal Color, Warm Results - Vital Signs Recent Vital Signs: Last Vital Signs Temp 97.9 F 05/13/17 08:05 Pulse 75 05/13/17 08:54 Resp 20 05/13/17 08:05 BP 148/76 05/13/17 08:54 Pulse Ox 96 05/13/17 08:05 - Labs Result Diagrams: 05/13/17 05:45 05/13/17 05:45 Labs: Laboratory Results - last 24 hr 05/12/17 05/12/17 05/12/17 13:51 14:14 14:54 WBC RBC Hgb Hct MCV MCH MCHC RDW Plt Count MPV Neut % (Auto) Lymph % (Auto) Schleicher % (Auto) Eos % (Auto) Baso % (Auto) Neut # Lymph # Schleicher # Eos # Baso # Sodium Potassium Chloride Carbon Dioxide Anion Gap BUN Creatinine Est GFR ( Amer) Est GFR (Non-Af Amer) POC Glucose (mg/dL) 291 H Random Glucose Calcium Total Bilirubin AST ALT Alkaline Phosphatase Troponin I Total Protein Albumin Globulin Albumin/Globulin Ratio Lipase Urine Color Elisa Urine Clarity Cloudy Urine pH 7.0 Ur Specific [place] 1.019 Urine Protein 30 Urine Glucose (UA) 50 Urine Ketones Negative Urine Blood Negative Urine Nitrate Negative Urine Bilirubin Negative Urine Urobilinogen 4.0 Ur Leukocyte Esterase Neg Urine RBC (Auto) 7 H Urine Microscopic WBC 5 Urine Bacteria Rare Hyaline Casts 6-10 H Blood Type B POSITIVE Antibody Screen Negative BBK History Checked Patient has bt 05/12/17 05/12/17 05/13/17 15:10 21:21 05:45 WBC 7.6 RBC 2.77 L Hgb 8.7 L Hct 26.6 L MCV 95.9 H MCH 31.4 H MCHC 32.8 L RDW 13.3 Plt Count 249 MPV 8.6 Neut % (Auto) 74.2 Lymph % (Auto) 14.6 L Schleicher % (Auto) 8.1 Eos % (Auto) 2.6 Baso % (Auto) 0.5 Neut # 5.6 Lymph # 1.1 Schleicher # 0.6 Eos # 0.2 Baso # 0.0 Sodium 140 Potassium 5.1 H Chloride 94 L Carbon Dioxide 33 H Anion Gap 18 BUN 46 H Creatinine 1.7 H Est GFR ( Amer) 49 Est GFR (Non-Af Amer) 41 POC Glucose (mg/dL) 238 H Random Glucose 313 H Calcium 10.0 Total Bilirubin 1.2 AST 259 H D ALT 252 H Alkaline Phosphatase 874 H D Troponin I 0.0190 Total Protein 8.2 Albumin 3.6 Globulin 4.5 H Albumin/Globulin Ratio 0.8 L Lipase 4912 H Urine Color Urine Clarity Urine pH Ur Specific [place] Urine Protein Urine Glucose (UA) Urine Ketones Urine Blood Urine Nitrate Urine Bilirubin Urine Urobilinogen Ur Leukocyte Esterase Urine RBC (Auto) Urine Microscopic WBC Urine Bacteria Hyaline Casts Blood Type Antibody Screen BBK History Checked 05/13/17 05/13/17 05:45 05:45 WBC RBC Hgb Hct MCV MCH MCHC RDW Plt Count MPV Neut % (Auto) Lymph % (Auto) Schleicher % (Auto) Eos % (Auto) Baso % (Auto) Neut # Lymph # Schleicher # Eos # Baso # Sodium 143 Potassium 4.4 Chloride 101 Carbon Dioxide 32 H Anion Gap 14 BUN 39 H Creatinine 1.2 Est GFR ( Amer) > 60 Est GFR (Non-Af Amer) > 60 POC Glucose (mg/dL) 240 H Random Glucose 239 H Calcium 9.3 Total Bilirubin 1.3 AST 190 H D ALT 223 H Alkaline Phosphatase 733 H Troponin I Total Protein 7.3 Albumin 3.2 L Globulin 4.1 H Albumin/Globulin Ratio 0.8 L Lipase 4155 H Urine Color Urine Clarity Urine pH Ur Specific [place] Urine Protein Urine Glucose (UA) Urine Ketones Urine Blood Urine Nitrate Urine Bilirubin Urine Urobilinogen Ur Leukocyte Esterase Urine RBC (Auto) Urine Microscopic WBC Urine Bacteria Hyaline Casts Blood Type Antibody Screen BBK History Checked Assessment & Plan (1) Pancreatitis Assessment and Plan: npo ivf gi mrcp surgery no obv pain at present Status: Acute (2) Elevated LFTs Assessment and Plan: monitor gi mrcp, abd imaging utd noted Status: Acute (3) DVT prophylaxis Assessment and Plan: scd nad aehose, heparin Status: Acute (4) Stroke Assessment and Plan: cont home meds dc back to rehab when stable Status: Acute Priority: High Decision To Admit - Pt Status Changed To: Hospital Disposition Of: Inpatient - Admit Certification Admit to Inpatient:: After my assessment, the patient will require hospitalization for at least two midnights. This is because of the severity of symptoms shown, intensity of services needed, and/or the medical risk in this patient being treated as an outpatient. - . Bed Request Type: Med/Surg Admitting Physician: Guilherme Jimenez
--- NOTE | 2017-05-13 17:05 | MRI ---
PROCEDURE: Magnetic Resonance Cholangiopancreatography l HISTORY: COMPARISON: None available. TECHNIQUE: Multiplanar, multisequence MR images of the abdomen were obtained, including heavily T2 weighted MRCP images of the biliary system. Rotating maximum intensity projection images of the biliary system were generated. FINDINGS: MRCP: The common bile duct measures 8 mm in diameter. This may be due to age related ectasia. There is no intrahepatic biliary dilatation. There is no evidence of choledocholithiasis. LIVER: Unremarkable. GALLBLADDER: Unremarkable. SPLEEN: Unremarkable. PANCREAS: No mass. No pancreatic ductal dilatation. ADRENALS: Unremarkable. KIDNEYS: Unremarkable. AORTA: No aneurysm. ASCITES: None. OTHER FINDINGS: None. IMPRESSION: Minimal dilatation of common bile duct to a diameter of 8 mm, possibly due to age related ectasia. No evidence of choledocholithiasis. Unremarkable appearance of the pancreas.
[2017-05-13] MEDS: levoFLOXacin 750 MG TAB PO SCH (17:48)
[2017-05-14 06:29] LABS: BASO % 0.6 % (0.0-2.0); EOS # 0.2 K/uL (0.0-0.7); EOS % 3.6 % (0.0-4.0); HEMOGLOBIN 8.5 g/dL (12.0-18.0); LYMPH # 0.8 K/uL (1.0-4.3); LYMPH % 14.8 % (20.0-40.0); MEAN CELL VOLUME 96.5 fl (80.0-94.0); MEAN CORPUSCULAR HEMOGLOBIN 31.1 pg (27.0-31.0); MEAN CORPUSCULAR HGB CONC 32.2 g/dL (33.0-37.0); MEAN PLATELET VOLUME 8.4 fl (7.2-11.7); MONO # 0.5 K/uL (0.0-0.8); MONO % 8.7 % (0.0-10.0); NEUT # 3.9 K/uL (1.8-7.0); NEUT % 72.3 % (50.0-75.0); NRBC % 0.1 % (0.0-0.0); RBC 2.74 Mil/uL (4.40-5.90); RED CELL DISTRIBUTION WIDTH 13.6 % (11.5-14.5); WHITE BLOOD COUNT 5.5 K/uL (4.8-10.8)
[2017-05-14 07:29] LABS: ALB/GLOB RATIO 0.7 (1.0-2.1); ALT/SGPT 199 U/L (21-72); AST/SGOT 148 U/L (17-59); BLOOD UREA NITROGEN 24 mg/dl (9-20); CALCIUM 9.3 mg/dL (8.4-10.2); GFR AFRICAN-AMERICAN > 60; GFR NON-AFRICAN AMERICAN > 60
[2017-05-14 07:59] LABS: LIPASE 2839 U/L (23-300)
--- NOTE | 2017-05-14 08:16 | CP.PCM.PN ---
<Rey Adams Lior - Last Filed: 05/14/17 09:13> Subjective - Date & Time of Evaluation Date of Evaluation: 05/14/17 Time of Evaluation: 08:20 - Subjective Subjective: General Surgery: Dr Fernandez Pt S&E. Slightly more responsive today. Pt nods yes or no to questioning. Denies pain in upper abdomen. Denies N/V. Admits to pain in lower abdomen, specifically supra-pubic in location. Pt had MRCP yesterday which shows no choledocholithiasis. Objective - Vital Signs/Intake and Output Vital Signs (last 24 hours): Temp Pulse Resp BP Pulse Ox 97.7 F 83 20 180/73 H 100 05/14/17 00:41 05/14/17 06:16 05/14/17 00:41 05/14/17 06:16 05/14/17 00:41 - Medications Medications: Current Medications Acetaminophen (Tylenol 325mg Tab) 650 mg GT Q4H PRN PRN Reason: Temp >100 Acetaminophen (Tylenol 325mg Tab) 650 mg GT Q4H PRN PRN Reason: Pain, Mild (1-3) Al Hydrox/Mg Hydrox/Simethicone (Maalox Plus 30 Ml) 30 ml PO Q4H PRN PRN Reason: heartburn/indigestion Amlodipine Besylate (Norvasc) 10 mg GT DAILY [facility] Last Admin: 05/13/17 08:54 Dose: 10 mg Aspirin (Aspirin) 325 mg GT DAILY [facility] Last Admin: 05/13/17 10:31 Dose: 325 mg Atorvastatin Calcium (Lipitor) 20 mg GT HS [facility] Last Admin: 05/13/17 21:41 Dose: 20 mg Carvedilol (Coreg) 12.5 mg GT Q12H [facility] Last Admin: 05/14/17 06:16 Dose: 12.5 mg Escitalopram Oxalate (Lexapro) 5 mg GT DAILY [facility] Last Admin: 05/13/17 08:53 Dose: 5 mg Famotidine (Pepcid) 20 mg IVP Q12 [facility] Last Admin: 05/13/17 21:43 Dose: 20 mg Heparin Sodium (Porcine) (Heparin) 5,000 units SC Q8H [facility] PRN Reason: Protocol Last Admin: 05/14/17 02:35 Dose: 5,000 units Insulin Human Lispro (Humalog) 0 units SC ACHS [facility] PRN Reason: Protocol Last Admin: 05/13/17 21:43 Dose: Not Given Levofloxacin (Levaquin) 750 mg PO QPM [facility] Last Admin: 05/13/17 17:48 Dose: 750 mg Lisinopril (Zestril) 20 mg GT DAILY [facility] Last Admin: 05/13/17 08:54 Dose: 20 mg Magnesium Hydroxide (Milk Of Magnesia) 30 ml PO DAILY PRN PRN Reason: Constipation Ondansetron HCl (Zofran Inj) 4 mg IVP Q6 PRN PRN Reason: Nausea/Vomiting Pantoprazole Sodium (Protonix Inj) 40 mg IVP DAILY [facility] Last Admin: 05/13/17 08:53 Dose: 40 mg Silver Sulfadiazine (Silvadene 1% 20 Gm) 1 ea TOP QSHIFT [facility] - Labs Labs: 05/14/17 05:50 05/14/17 05:50 PT 14.1 Seconds (9.8-13.1) H 05/12/17 13:55 INR 1.3 (0.9-1.2) H 05/12/17 13:55 APTT 35.3 Seconds (25.6-37.1) 05/12/17 13:55 - Constitutional Appears: Non-toxic, No Acute Distress - ENT Exam ENT Exam: Mucous Membranes Moist - Respiratory Exam Respiratory Exam: absent: Respiratory Distress - Cardiovascular Exam Cardiovascular Exam: absent: Tachycardia - GI/Abdominal Exam GI & Abdominal Exam: Soft, Tenderness (suprapubic no tenderness in RUQ or epigastrium). absent: Distended, Firm, Guarding, Rigid, Rebound - Neurological Exam Neurological Exam: Awake - Skin Skin Exam: Normal Color Assessment and Plan - Assessment and Plan (Free Text) Assessment: 66M with transaminitis from unknown etiology <Temo Fernandez - Last Filed: 05/14/17 11:04> Subjective - Date & Time of Evaluation Time of Evaluation: 10:15 - Subjective Subjective: Patient was seen and examined at the bedside. Agree with resident's note above Objective - Vital Signs/Intake and Output Vital Signs (last 24 hours): Temp Pulse Resp BP Pulse Ox 97.4 F L 78 20 190/66 H 100 05/14/17 08:27 05/14/17 09:30 05/14/17 08:27 05/14/17 09:30 05/14/17 08:27 - Medications Medications: Current Medications Acetaminophen (Tylenol 325mg Tab) 650 mg GT Q4H PRN PRN Reason: Temp >100 Acetaminophen (Tylenol 325mg Tab) 650 mg GT Q4H PRN PRN Reason: Pain, Mild (1-3) Al Hydrox/Mg Hydrox/Simethicone (Maalox Plus 30 Ml) 30 ml PO Q4H PRN PRN Reason: heartburn/indigestion Amlodipine Besylate (Norvasc) 10 mg GT DAILY [facility] Last Admin: 05/14/17 09:30 Dose: 10 mg Aspirin (Aspirin) 325 mg GT DAILY [facility] Last Admin: 05/13/17 10:31 Dose: 325 mg Atorvastatin Calcium (Lipitor) 20 mg GT HS [facility] Last Admin: 05/13/17 21:41 Dose: 20 mg Carvedilol (Coreg) 12.5 mg GT Q12H [facility] Last Admin: 05/14/17 06:16 Dose: 12.5 mg Escitalopram Oxalate (Lexapro) 5 mg GT DAILY [facility] Last Admin: 05/14/17 09:28 Dose: 5 mg Famotidine (Pepcid) 20 mg IVP Q12 [facility] Last Admin: 05/14/17 09:29 Dose: 20 mg Heparin Sodium (Porcine) (Heparin) 5,000 units SC Q8H [facility] PRN Reason: Protocol Last Admin: 05/14/17 02:35 Dose: 5,000 units Insulin Human Lispro (Humalog) 0 units SC ACHS [facility] PRN Reason: Protocol Last Admin: 05/14/17 09:31 Dose: Not Given Levofloxacin (Levaquin) 750 mg PO QPM [facility] Last Admin: 05/13/17 17:48 Dose: 750 mg Lisinopril (Zestril) 20 mg GT DAILY [facility] Last Admin: 05/14/17 09:29 Dose: 20 mg Magnesium Hydroxide (Milk Of Magnesia) 30 ml PO DAILY PRN PRN Reason: Constipation Ondansetron HCl (Zofran Inj) 4 mg IVP Q6 PRN PRN Reason: Nausea/Vomiting Pantoprazole Sodium (Protonix Inj) 40 mg IVP DAILY [facility] Last Admin: 05/14/17 09:32 Dose: 40 mg Silver Sulfadiazine (Silvadene 1% 20 Gm) 1 ea TOP [facility] Last Admin: 05/14/17 09:33 Dose: 1 applic - Labs Labs: 05/14/17 05:50 05/14/17 05:50 PT 14.1 Seconds (9.8-13.1) H 05/12/17 13:55 INR 1.3 (0.9-1.2) H 05/12/17 13:55 APTT 35.3 Seconds (25.6-37.1) 05/12/17 13:55 Assessment and Plan - Assessment and Plan (Free Text) Assessment: 66 y.o. male with pancreatitis and elevated LFTs, MRCP negative for choledocholithiasis Plan: - Keep NPO - IV fluids - pain control - GI follow up - Repeat labs in am - Will follow
--- NOTE | 2017-05-14 08:33 | CP.PCM.PN ---
Subjective - Date & Time of Evaluation Date of Evaluation: 05/14/17 Time of Evaluation: 08:32 - Subjective Subjective: pt doing well c/o suprapubic pain. no f/c, n/v/d. am labs noted. mrcp wnl. dc case d/c w/ surgical assistant Objective - Vital Signs/Intake and Output Vital Signs (last 24 hours): Temp Pulse Resp BP Pulse Ox 97.4 F L 78 20 190/66 H 100 05/14/17 08:27 05/14/17 08:27 05/14/17 08:27 05/14/17 08:27 05/14/17 08:27 - Medications Medications: Current Medications Acetaminophen (Tylenol 325mg Tab) 650 mg GT Q4H PRN PRN Reason: Temp >100 Acetaminophen (Tylenol 325mg Tab) 650 mg GT Q4H PRN PRN Reason: Pain, Mild (1-3) Al Hydrox/Mg Hydrox/Simethicone (Maalox Plus 30 Ml) 30 ml PO Q4H PRN PRN Reason: heartburn/indigestion Amlodipine Besylate (Norvasc) 10 mg GT DAILY [facility] Last Admin: 05/13/17 08:54 Dose: 10 mg Aspirin (Aspirin) 325 mg GT DAILY [facility] Last Admin: 05/13/17 10:31 Dose: 325 mg Atorvastatin Calcium (Lipitor) 20 mg GT HS [facility] Last Admin: 05/13/17 21:41 Dose: 20 mg Carvedilol (Coreg) 12.5 mg GT Q12H [facility] Last Admin: 05/14/17 06:16 Dose: 12.5 mg Escitalopram Oxalate (Lexapro) 5 mg GT DAILY [facility] Last Admin: 05/13/17 08:53 Dose: 5 mg Famotidine (Pepcid) 20 mg IVP Q12 [facility] Last Admin: 05/13/17 21:43 Dose: 20 mg Heparin Sodium (Porcine) (Heparin) 5,000 units SC Q8H [facility] PRN Reason: Protocol Last Admin: 05/14/17 02:35 Dose: 5,000 units Insulin Human Lispro (Humalog) 0 units SC ACHS [facility] PRN Reason: Protocol Last Admin: 05/13/17 21:43 Dose: Not Given Levofloxacin (Levaquin) 750 mg PO QPM [facility] Last Admin: 05/13/17 17:48 Dose: 750 mg Lisinopril (Zestril) 20 mg GT DAILY [facility] Last Admin: 05/13/17 08:54 Dose: 20 mg Magnesium Hydroxide (Milk Of Magnesia) 30 ml PO DAILY PRN PRN Reason: Constipation Ondansetron HCl (Zofran Inj) 4 mg IVP Q6 PRN PRN Reason: Nausea/Vomiting Pantoprazole Sodium (Protonix Inj) 40 mg IVP DAILY [facility] Last Admin: 05/13/17 08:53 Dose: 40 mg Silver Sulfadiazine (Silvadene 1% 20 Gm) 1 ea TOP QSHIFT [facility] - Labs Labs: 05/14/17 05:50 05/14/17 05:50 PT 14.1 Seconds (9.8-13.1) H 05/12/17 13:55 INR 1.3 (0.9-1.2) H 05/12/17 13:55 APTT 35.3 Seconds (25.6-37.1) 05/12/17 13:55 - Constitutional Appears: Well, Non-toxic, No Acute Distress - Head Exam Head Exam: ATRAUMATIC, NORMAL INSPECTION, NORMOCEPHALIC - Eye Exam Eye Exam: EOMI, Normal appearance, PERRL Pupil Exam: NORMAL ACCOMODATION, PERRL - ENT Exam ENT Exam: Mucous Membranes Moist, Normal Exam - Neck Exam Neck Exam: Full ROM, Normal Inspection. absent: Lymphadenopathy - Respiratory Exam Respiratory Exam: Clear to Ausculation Bilateral, NORMAL BREATHING PATTERN - Cardiovascular Exam Cardiovascular Exam: REGULAR RHYTHM, RRR, +S1, +S2. absent: Murmur - GI/Abdominal Exam GI & Abdominal Exam: Soft, Tenderness, Normal Bowel Sounds Additional comments: suprapubic tenderness - Extremities Exam Extremities Exam: Full ROM, Normal Capillary Refill, Normal Inspection. absent : Joint Swelling, Pedal Edema - Back Exam Back Exam: NORMAL INSPECTION - Neurological Exam Neurological Exam: Alert, Awake, CN II-XII Intact, Normal Gait, Oriented x3 - Psychiatric Exam Psychiatric exam: Normal Affect, Normal Mood - Skin Skin Exam: Dry, Intact, Normal Color, Warm Assessment and Plan (1) Pancreatitis Status: Acute (2) Elevated LFTs Status: Acute (3) DVT prophylaxis Status: Acute (4) Stroke Status: Acute - Assessment and Plan (Free Text) Assessment: (1) Pancreatitis Assessment and Plan: npo ivf gi mrcp surgery no obv pain at present Status: Acute (2) Elevated LFTs Assessment and Plan: monitor gi mrcand all other imaging noted Status: Acute (3) DVT prophylaxis Assessment and Plan: scd nad aehose, heparin Status: Acute (4) Stroke Assessment and Plan: cont home meds dc back to rehab when stable Status: Acute Priority: High 5-suprapubic pain-bladder scan, consider ct abd/pelvis or dedicated bladder us
--- NOTE | 2017-05-14 08:47 | CON ---
DATE: 05/13/2017 REFERRING PHYSICIAN: Dr. Romero. REASON FOR CONSULTATION: Elevated LFTs. HISTORY OF PRESENT ILLNESS: This is a 66-year-old male who is nonverbal status post stroke, essentially admitted for abdominal pain. He is a poor historian essentially. On examination, he has no pain. He does not respond very much to questioning. Everything by chart and staff who was present at bedside. PAST MEDICAL HISTORY: As above. PAST SURGICAL HISTORY: As above. MEDICATIONS: Have been reviewed. REVIEW OF SYSTEMS: Unable to obtain. PHYSICAL EXAMINATION: VITAL SIGNS: Here in the hospital, grossly unremarkable. GENERAL: This is a pleasant elderly-appearing male, lying in bed comfortably, in no apparent distress. HEENT: Head is normocephalic, atraumatic. Eyes, pupils equally reactive to light bilaterally. No conjunctival pallor or icterus. NECK: Supple. Normal range of motion. No murmurs appreciated. LUNGS: Coarse breath sounds bilaterally. HEART: S1 and S2, regular rate and rhythm. No murmurs appreciated. ABDOMEN: Soft and nontender. Bowel sounds present. No rebound. No guarding. RECTAL: Deferred. EXTREMITIES: Pulses present bilaterally. SKIN: Warm, dry, and intact. NEUROLOGIC: A and O x1. He does not respond to pain. LABORATORY DATA: All labs and relevant radiology have been reviewed. Ultrasound shows gallbladder wall thickening. No sludge. WBC is 7.6, hemoglobin 8.7, hematocrit 26.6. INR 1.3. Lipase of 4000, AST and ALT 190/223, alk phos 733. Sugars of 239. ASSESSMENT AND PLAN: This is a 66-year-old man with pancreatitis and elevated LFTs. From GI standpoint, IV hydration, patient apparently is pending an MRCP. We will follow patient with you. Thank you for the consult. Jaiden Ocampo MD/ PhD cc: Dr. Romero.
[2017-05-14] MEDS: Insulin Lispro (humaLOG) 100 Units/ml Inj SC SCH ×4 (09:31→22:01)
[2017-05-14] MEDS: Silver Sulfadiazine 1% Cream (20 gm) TOP SCH (09:33)
[2017-05-14] MEDS: Lactated Ringer's 1,000 ML IV SCH ×2 (12:31→20:02)
--- NOTE | 2017-05-14 12:55 | PQF GENQUE ---
Samuel Romero EDUCATION REP, Acute Stroke versus hx. of a CVA? The attending physician is required to clarify conflicting documentation in the medical record. The following documentation is noted in the medical record: Diagnosis 1: S/P CVA Documented by: MELVIN CHINCHILLA Location: draft ER note Diagnosis 2: Stroke: Status: Acute Documented by: Chaitanya Romero APN Location: H and P: Assessment Plan section in the EMR OR: Unable to determine OR: Other explanation of clinical finding This form is a permanent part of the medical record Clarification of your documentation is requested to better reflect the severity of illness and intensity of treatment of your patient. Indicators present [] Specify: [] [] Specify: [] [] Specify: [] [] Specify: [] Location in the medical record that reflects the above clinical findings: [] Treatment Provided: [] PHYSICIAN'S RESPONSE Based on your medical judgment of the clinical indicators outlined above please clarify the following: [] Practitioner response correction dx stroke is old/chronic. not acute. [] If unable to determine, please check the box, sign and date. Present On Admission (POA) Indicator: [] Present at the time of admission [] Not present at the time of admission [] Clinically Undetermined In responding to this query, please exercise your independent professional judgment. The fact that a question is asked does not imply that any particular answer is desired or expected. Thank you for your clarification on this documentation. If you have any questions please call. * Thank you, Birgit Reeves RN ext. #[phone] MTDD
--- NOTE | 2017-05-14 16:07 | CP.PCM.PN ---
Subjective - Date & Time of Evaluation Date of Evaluation: 05/14/17 Time of Evaluation: 12:00 - Subjective Subjective: no overnight events Objective - Vital Signs/Intake and Output Vital Signs (last 24 hours): Temp Pulse Resp BP Pulse Ox 97.4 F L 78 20 190/66 H 100 05/14/17 08:27 05/14/17 09:30 05/14/17 08:27 05/14/17 09:30 05/14/17 08:27 - Medications Medications: Current Medications Acetaminophen (Tylenol 325mg Tab) 650 mg GT Q4H PRN PRN Reason: Temp >100 Acetaminophen (Tylenol 325mg Tab) 650 mg GT Q4H PRN PRN Reason: Pain, Mild (1-3) Al Hydrox/Mg Hydrox/Simethicone (Maalox Plus 30 Ml) 30 ml PO Q4H PRN PRN Reason: heartburn/indigestion Amlodipine Besylate (Norvasc) 10 mg GT DAILY [facility] Last Admin: 05/14/17 09:30 Dose: 10 mg Aspirin (Aspirin) 325 mg GT DAILY [facility] Last Admin: 05/14/17 09:33 Dose: 325 mg Atorvastatin Calcium (Lipitor) 20 mg GT HS [facility] Last Admin: 05/13/17 21:41 Dose: 20 mg Carvedilol (Coreg) 12.5 mg GT Q12H [facility] Last Admin: 05/14/17 06:16 Dose: 12.5 mg Escitalopram Oxalate (Lexapro) 5 mg GT DAILY [facility] Last Admin: 05/14/17 09:28 Dose: 5 mg Famotidine (Pepcid) 20 mg IVP Q12 [facility] Last Admin: 05/14/17 09:29 Dose: 20 mg Heparin Sodium (Porcine) (Heparin) 5,000 units SC Q8H [facility] PRN Reason: Protocol Last Admin: 05/14/17 12:32 Dose: 5,000 units Lactated Ringer's (Lactated Ringer's) 1,000 mls @ 125 mls/hr IV .Q8H [facility] Last Admin: 05/14/17 12:31 Dose: 125 mls/hr Insulin Human Lispro (Humalog) 0 units SC ACHS [facility] PRN Reason: Protocol Last Admin: 05/14/17 11:30 Dose: Not Given Levofloxacin (Levaquin) 750 mg PO QPM [facility] Last Admin: 05/13/17 17:48 Dose: 750 mg Lisinopril (Zestril) 20 mg GT DAILY [facility] Last Admin: 05/14/17 09:29 Dose: 20 mg Magnesium Hydroxide (Milk Of Magnesia) 30 ml PO DAILY PRN PRN Reason: Constipation Ondansetron HCl (Zofran Inj) 4 mg IVP Q6 PRN PRN Reason: Nausea/Vomiting Pantoprazole Sodium (Protonix Inj) 40 mg IVP DAILY [facility] Last Admin: 05/14/17 09:32 Dose: 40 mg Silver Sulfadiazine (Silvadene 1% 20 Gm) 1 ea TOP QSHIFT [facility] Last Admin: 05/14/17 09:33 Dose: 1 applic - Labs Labs: 05/14/17 05:50 05/14/17 05:50 PT 14.1 Seconds (9.8-13.1) H 05/12/17 13:55 INR 1.3 (0.9-1.2) H 05/12/17 13:55 APTT 35.3 Seconds (25.6-37.1) 05/12/17 13:55 - Neck Exam Neck Exam: Normal Inspection - Respiratory Exam Respiratory Exam: NORMAL BREATHING PATTERN - Cardiovascular Exam Cardiovascular Exam: REGULAR RHYTHM - GI/Abdominal Exam GI & Abdominal Exam: Soft, Normal Bowel Sounds Assessment and Plan - Assessment and Plan (Free Text) Assessment: 66 yo male with pancreatitis mrcp negative clinically improving surgical evaluation appreciated
[2017-05-14] MEDS: levoFLOXacin 750 MG TAB PO SCH (18:29)
[2017-05-15] MEDS: Lactated Ringer's 1,000 ML IV SCH ×3 (04:00→21:50)
[2017-05-15 06:23] LABS: BASO % 0.6 % (0.0-2.0); EOS # 0.1 K/uL (0.0-0.7); EOS % 3.1 % (0.0-4.0); HEMOGLOBIN 8.5 g/dL (12.0-18.0); LYMPH # 0.9 K/uL (1.0-4.3); LYMPH % 19.4 % (20.0-40.0); MEAN CELL VOLUME 96.4 fl (80.0-94.0); MEAN CORPUSCULAR HGB CONC 32.1 g/dL (33.0-37.0); MEAN PLATELET VOLUME 8.3 fl (7.2-11.7); MONO # 0.4 K/uL (0.0-0.8); MONO % 9.2 % (0.0-10.0); NEUT % 67.7 % (50.0-75.0); NRBC % 0.1 % (0.0-0.0); RBC 2.74 Mil/uL (4.40-5.90); RED CELL DISTRIBUTION WIDTH 13.4 % (11.5-14.5); WHITE BLOOD COUNT 4.5 K/uL (4.8-10.8)
[2017-05-15 06:40] LABS: ALB/GLOB RATIO 0.8 (1.0-2.1); ALBUMIN 3.1 g/dL (3.5-5.0); ALT/SGPT 172 U/L (21-72); AMYLASE 385 U/L (30-110); AST/SGOT 117 U/L (17-59); BLOOD UREA NITROGEN 16 mg/dl (9-20); CALCIUM 9.2 mg/dL (8.4-10.2); GFR AFRICAN-AMERICAN > 60; GFR NON-AFRICAN AMERICAN > 60
[2017-05-15] MEDS: Insulin Lispro (humaLOG) 100 Units/ml Inj SC SCH ×4 (06:44→21:53)
[2017-05-15 06:47] LABS: LIPASE 2042 U/L (23-300)
[2017-05-15] MEDS: Silver Sulfadiazine 1% Cream (20 gm) TOP SCH (09:04)
--- NOTE | 2017-05-15 10:55 | CP.PCM.PN ---
Subjective - Date & Time of Evaluation Date of Evaluation: 05/15/17 Time of Evaluation: 10:55 - Subjective Subjective: doing well. no f/c, n/v/d. bw noted. per gi likely stable for dc tomrorrow. per surgery no intervention planned. no suprapubic pain at present. Objective - Vital Signs/Intake and Output Vital Signs (last 24 hours): Temp Pulse Resp BP Pulse Ox 97.6 F 79 20 180/83 H 100 05/15/17 08:58 05/15/17 08:58 05/15/17 08:58 05/15/17 09:03 05/15/17 08:58 - Medications Medications: Current Medications Acetaminophen (Tylenol 325mg Tab) 650 mg GT Q4H PRN PRN Reason: Temp >100 Acetaminophen (Tylenol 325mg Tab) 650 mg GT Q4H PRN PRN Reason: Pain, Mild (1-3) Al Hydrox/Mg Hydrox/Simethicone (Maalox Plus 30 Ml) 30 ml PO Q4H PRN PRN Reason: heartburn/indigestion Amlodipine Besylate (Norvasc) 10 mg GT DAILY [facility] Last Admin: 05/15/17 09:03 Dose: 10 mg Aspirin (Aspirin) 325 mg GT DAILY [facility] Last Admin: 05/15/17 09:11 Dose: 325 mg Atorvastatin Calcium (Lipitor) 20 mg GT HS [facility] Last Admin: 05/14/17 22:01 Dose: 20 mg Carvedilol (Coreg) 12.5 mg GT Q12H [facility] Last Admin: 05/15/17 06:34 Dose: 12.5 mg Escitalopram Oxalate (Lexapro) 5 mg GT DAILY [facility] Last Admin: 05/15/17 09:03 Dose: 5 mg Famotidine (Pepcid) 20 mg IVP Q12 [facility] Last Admin: 05/15/17 09:11 Dose: 20 mg Heparin Sodium (Porcine) (Heparin) 5,000 units SC Q8H [facility] PRN Reason: Protocol Last Admin: 05/15/17 03:20 Dose: 5,000 units Lactated Ringer's (Lactated Ringer's) 1,000 mls @ 125 mls/hr IV .Q8H [facility] Last Admin: 05/15/17 04:00 Dose: Not Given Insulin Human Lispro (Humalog) 0 units SC ACHS [facility] PRN Reason: Protocol Last Admin: 05/15/17 06:44 Dose: Not Given Levofloxacin (Levaquin) 750 mg PO QPM [facility] Last Admin: 05/14/17 18:29 Dose: 750 mg Lisinopril (Zestril) 20 mg GT DAILY [facility] Last Admin: 05/15/17 09:03 Dose: 20 mg Magnesium Hydroxide (Milk Of Magnesia) 30 ml PO DAILY PRN PRN Reason: Constipation Ondansetron HCl (Zofran Inj) 4 mg IVP Q6 PRN PRN Reason: Nausea/Vomiting Pantoprazole Sodium (Protonix Inj) 40 mg IVP DAILY [facility] Last Admin: 05/15/17 09:05 Dose: 40 mg Silver Sulfadiazine (Silvadene 1% 20 Gm) 1 ea TOP QSHIFT [facility] Last Admin: 05/15/17 09:04 Dose: 1 applic - Labs Labs: 05/15/17 05:55 05/15/17 05:55 PT 14.1 Seconds (9.8-13.1) H 05/12/17 13:55 INR 1.3 (0.9-1.2) H 05/12/17 13:55 APTT 35.3 Seconds (25.6-37.1) 05/12/17 13:55 - Constitutional Appears: Well, Non-toxic, No Acute Distress - Head Exam Head Exam: ATRAUMATIC, NORMAL INSPECTION, NORMOCEPHALIC - Eye Exam Eye Exam: EOMI, Normal appearance, PERRL Pupil Exam: NORMAL ACCOMODATION, PERRL - ENT Exam ENT Exam: Mucous Membranes Moist, Normal Exam - Neck Exam Neck Exam: Full ROM, Normal Inspection. absent: Lymphadenopathy - Respiratory Exam Respiratory Exam: Clear to Ausculation Bilateral, NORMAL BREATHING PATTERN - Cardiovascular Exam Cardiovascular Exam: REGULAR RHYTHM, +S1, +S2. absent: Murmur - GI/Abdominal Exam GI & Abdominal Exam: Soft, Normal Bowel Sounds. absent: Tenderness - Extremities Exam Extremities Exam: Full ROM, Normal Capillary Refill, Normal Inspection. absent : Joint Swelling, Pedal Edema - Back Exam Back Exam: NORMAL INSPECTION - Neurological Exam Neurological Exam: Alert, Awake, CN II-XII Intact, Normal Gait, Oriented x3 - Psychiatric Exam Psychiatric exam: Normal Affect, Normal Mood - Skin Skin Exam: Dry, Intact, Normal Color, Warm Assessment and Plan (1) Pancreatitis Assessment & Plan: unkn etiology?? passed stone gi/surgery likely dc back to [facility] tomorrow Status: Acute (2) Elevated LFTs Assessment & Plan: likely r/t passed stone. trendingdown gi/surgery Status: Acute (3) DVT prophylaxis Assessment & Plan: scd and ae hose heparin Status: Acute (4) Stroke Assessment & Plan: h/o stroke cont home meds Status: Chronic - Assessment and Plan (Free Text) Assessment: will resume feedings later today or tomorro when cleared by gi
--- NOTE | 2017-05-15 12:39 | CP.PCM.PN ---
Subjective - Date & Time of Evaluation Date of Evaluation: 05/15/17 Time of Evaluation: 11:50 - Subjective Subjective: Patient was seen and examined at the bedside. Denies any abdominal pain. Objective - Vital Signs/Intake and Output Vital Signs (last 24 hours): Temp Pulse Resp BP Pulse Ox 97.6 F 79 20 180/83 H 100 05/15/17 08:58 05/15/17 08:58 05/15/17 08:58 05/15/17 09:03 05/15/17 08:58 - Medications Medications: Current Medications Acetaminophen (Tylenol 325mg Tab) 650 mg GT Q4H PRN PRN Reason: Temp >100 Acetaminophen (Tylenol 325mg Tab) 650 mg GT Q4H PRN PRN Reason: Pain, Mild (1-3) Al Hydrox/Mg Hydrox/Simethicone (Maalox Plus 30 Ml) 30 ml PO Q4H PRN PRN Reason: heartburn/indigestion Amlodipine Besylate (Norvasc) 10 mg GT DAILY [facility] Last Admin: 05/15/17 09:03 Dose: 10 mg Aspirin (Aspirin) 325 mg GT DAILY [facility] Last Admin: 05/15/17 09:11 Dose: 325 mg Atorvastatin Calcium (Lipitor) 20 mg GT HS [facility] Last Admin: 05/14/17 22:01 Dose: 20 mg Carvedilol (Coreg) 12.5 mg GT Q12H [facility] Last Admin: 05/15/17 06:34 Dose: 12.5 mg Escitalopram Oxalate (Lexapro) 5 mg GT DAILY [facility] Last Admin: 05/15/17 09:03 Dose: 5 mg Famotidine (Pepcid) 20 mg IVP Q12 [facility] Last Admin: 05/15/17 09:11 Dose: 20 mg Heparin Sodium (Porcine) (Heparin) 5,000 units SC Q8H [facility] PRN Reason: Protocol Last Admin: 05/15/17 11:00 Dose: 5,000 units Lactated Ringer's (Lactated Ringer's) 1,000 mls @ 125 mls/hr IV .Q8H [facility] Last Admin: 05/15/17 04:00 Dose: Not Given Insulin Human Lispro (Humalog) 0 units SC ACHS [facility] PRN Reason: Protocol Last Admin: 05/15/17 06:44 Dose: Not Given Levofloxacin (Levaquin) 750 mg PO QPM [facility] Last Admin: 05/14/17 18:29 Dose: 750 mg Lisinopril (Zestril) 20 mg GT DAILY [facility] Last Admin: 05/15/17 09:03 Dose: 20 mg Magnesium Hydroxide (Milk Of Magnesia) 30 ml PO DAILY PRN PRN Reason: Constipation Ondansetron HCl (Zofran Inj) 4 mg IVP Q6 PRN PRN Reason: Nausea/Vomiting Pantoprazole Sodium (Protonix Inj) 40 mg IVP DAILY [facility] Last Admin: 05/15/17 09:05 Dose: 40 mg Silver Sulfadiazine (Silvadene 1% 20 Gm) 1 ea TOP QSHIFT [facility] Last Admin: 05/15/17 09:04 Dose: 1 applic - Labs Labs: 05/15/17 05:55 05/15/17 05:55 PT 14.1 Seconds (9.8-13.1) H 05/12/17 13:55 INR 1.3 (0.9-1.2) H 05/12/17 13:55 APTT 35.3 Seconds (25.6-37.1) 05/12/17 13:55 - Constitutional Appears: Well, Non-toxic, No Acute Distress - Head Exam Head Exam: ATRAUMATIC, NORMAL INSPECTION, NORMOCEPHALIC - ENT Exam ENT Exam: Mucous Membranes Moist, Normal Exam - Neck Exam Neck Exam: Full ROM, Normal Inspection - Respiratory Exam Respiratory Exam: Clear to Ausculation Bilateral, NORMAL BREATHING PATTERN - Cardiovascular Exam Cardiovascular Exam: REGULAR RHYTHM, +S1, +S2 - GI/Abdominal Exam GI & Abdominal Exam: Soft, Normal Bowel Sounds Additional comments: NT, ND, BS+, no rebound, no guarding, negative Santa's sign, PEG tube in place - Rectal Exam Rectal Exam: Deferred - Neurological Exam Neurological Exam: Alert, Awake - Skin Skin Exam: Dry, Intact, Normal Color, Warm Assessment and Plan - Assessment and Plan (Free Text) Assessment: 66 y.o. male with pancreatitis Plan: - Start tube feeds, advance as tolerated - IV fluids - pain control - Monitor LFTs - No general surgery intervention at present time - Continue care as per medical team - General surgery will sign off - Please re-consult as needed
[2017-05-15] MEDS: levoFLOXacin 750 MG TAB PO SCH (17:35)
[2017-05-16] MEDS: Lactated Ringer's 1,000 ML IV SCH (05:30)
[2017-05-16 07:49] LABS: BASO % 0.6 % (0.0-2.0); EOS # 0.1 K/uL (0.0-0.7); EOS % 2.2 % (0.0-4.0); HEMOGLOBIN 8.8 g/dL (12.0-18.0); LYMPH % 19.7 % (20.0-40.0); MEAN CELL VOLUME 95.6 fl (80.0-94.0); MEAN CORPUSCULAR HEMOGLOBIN 30.7 pg (27.0-31.0); MEAN CORPUSCULAR HGB CONC 32.1 g/dL (33.0-37.0); MEAN PLATELET VOLUME 8.9 fl (7.2-11.7); MONO # 0.5 K/uL (0.0-0.8); MONO % 10.3 % (0.0-10.0); NEUT # 3.3 K/uL (1.8-7.0); NEUT % 67.2 % (50.0-75.0); RBC 2.87 Mil/uL (4.40-5.90); RED CELL DISTRIBUTION WIDTH 13.3 % (11.5-14.5)
[2017-05-16] MEDS: Insulin Lispro (humaLOG) 100 Units/ml Inj SC SCH ×2 (08:10→11:47)
[2017-05-16 08:11] LABS: ALB/GLOB RATIO 0.7 (1.0-2.1); ALT/SGPT 146 U/L (21-72); AST/SGOT 107 U/L (17-59); BLOOD UREA NITROGEN 12 mg/dl (9-20); CALCIUM 9.4 mg/dL (8.4-10.2); GFR AFRICAN-AMERICAN > 60; GFR NON-AFRICAN AMERICAN > 60; LIPASE 1611 U/L (23-300)
[2017-05-16 08:17] VITALS: RESP 20
--- NOTE | 2017-05-16 09:32 | CP.PCM.PN ---
Subjective - Date & Time of Evaluation Date of Evaluation: 05/16/17 Time of Evaluation: 09:32 Objective - Vital Signs/Intake and Output Vital Signs (last 24 hours): Temp Pulse Resp BP Pulse Ox 97.6 F 84 20 164/70 H 96 05/16/17 08:17 05/16/17 08:17 05/16/17 08:17 05/16/17 08:17 05/16/17 08:17 Intake and Output: 05/16/17 05/16/17 06:59 18:59 Intake Total 1600 Output Total 2000 Balance -400 - Medications Medications: Current Medications Acetaminophen (Tylenol 325mg Tab) 650 mg GT Q4H PRN PRN Reason: Temp >100 Acetaminophen (Tylenol 325mg Tab) 650 mg GT Q4H PRN PRN Reason: Pain, Mild (1-3) Al Hydrox/Mg Hydrox/Simethicone (Maalox Plus 30 Ml) 30 ml PO Q4H PRN PRN Reason: heartburn/indigestion Amlodipine Besylate (Norvasc) 10 mg GT DAILY [facility] Last Admin: 05/15/17 09:03 Dose: 10 mg Aspirin (Aspirin) 325 mg GT DAILY [facility] Last Admin: 05/15/17 09:11 Dose: 325 mg Atorvastatin Calcium (Lipitor) 20 mg GT HS [facility] Last Admin: 05/15/17 21:48 Dose: 20 mg Carvedilol (Coreg) 12.5 mg GT Q12H [facility] Last Admin: 05/16/17 06:07 Dose: 12.5 mg Escitalopram Oxalate (Lexapro) 5 mg GT DAILY [facility] Last Admin: 05/15/17 09:03 Dose: 5 mg Famotidine (Pepcid) 20 mg IVP Q12 [facility] Last Admin: 05/15/17 21:49 Dose: 20 mg Heparin Sodium (Porcine) (Heparin) 5,000 units SC Q8H [facility] PRN Reason: Protocol Last Admin: 05/16/17 03:02 Dose: 5,000 units Lactated Ringer's (Lactated Ringer's) 1,000 mls @ 125 mls/hr IV .Q8H [facility] Last Admin: 05/16/17 05:30 Dose: 125 mls/hr Insulin Human Lispro (Humalog) 0 units SC ACHS [facility] PRN Reason: Protocol Last Admin: 05/16/17 08:10 Dose: Not Given Levofloxacin (Levaquin) 750 mg PO QPM [facility] Last Admin: 05/15/17 17:35 Dose: 750 mg Lisinopril (Zestril) 20 mg GT DAILY [facility] Last Admin: 05/15/17 09:03 Dose: 20 mg Magnesium Hydroxide (Milk Of Magnesia) 30 ml PO DAILY PRN PRN Reason: Constipation Ondansetron HCl (Zofran Inj) 4 mg IVP Q6 PRN PRN Reason: Nausea/Vomiting Pantoprazole Sodium (Protonix Inj) 40 mg IVP DAILY [facility] Last Admin: 05/15/17 09:05 Dose: 40 mg Silver Sulfadiazine (Silvadene 1% 20 Gm) 1 ea TOP QSHIFT [facility] Last Admin: 05/15/17 09:04 Dose: 1 applic - Labs Labs: 05/16/17 05:25 05/16/17 05:25 PT 14.1 Seconds (9.8-13.1) H 05/12/17 13:55 INR 1.3 (0.9-1.2) H 05/12/17 13:55 APTT 35.3 Seconds (25.6-37.1) 05/12/17 13:55 Assessment and Plan (1) Pancreatitis Status: Acute (2) Elevated LFTs Status: Acute (3) DVT prophylaxis Status: Acute (4) Stroke Status: Chronic
[2017-05-16] MEDS ORDERED: Potassium Chloride 20 mEq ER Tab PO ONE (09:36)
--- NOTE | 2017-05-16 10:57 | RAD ---
PROCEDURE: CHEST RADIOGRAPH, 1 VIEW HISTORY: infiltrate on previous xr COMPARISON: Comparison chest 05/12/2017. FINDINGS: LUNGS: Patchy infiltrate changes again seen in the right mid to lower lung field and left lung base. PLEURA: No pneumothorax or pleural fluid seen. CARDIOVASCULAR: Heart size is borderline/mildly enlarged. OSSEOUS STRUCTURES: In situ fixation pain right humerus. Degenerative osteoarthritis both shoulder girdles right greater than left VISUALIZED UPPER ABDOMEN: Normal. OTHER FINDINGS: None. IMPRESSION: Patchy infiltrate changes again seen in the right mid to lower lung field and left lung base.
[2017-05-16] MEDS ORDERED: levoFLOXacin 500 mg in D5W 500 MG/100 ML BAG IVPB SCH (12:00)
--- NOTE | 2017-05-16 12:02 | CP.PCM.DIS ---
Provider - Provider Date of Admission: 05/12/17 16:39 Attending physician: Guilherme Jimenez MD Time Spent in preparation of Discharge (in minutes): 15 Diagnosis - Discharge Diagnosis (1) Pancreatitis Status: Acute (2) Elevated LFTs Status: Acute (3) DVT prophylaxis Status: Acute (4) Stroke Status: Chronic Priority: High Hospital Course - Lab Results Lab Results: Most Recent Lab Values WBC 5.0 K/uL (4.8-10.8) 05/16/17 05:25 RBC 2.87 Mil/uL (4.40-5.90) L 05/16/17 05:25 Hgb 8.8 g/dL (12.0-18.0) L 05/16/17 05:25 Hct 27.4 % (35.0-51.0) L 05/16/17 05:25 MCV 95.6 fl (80.0-94.0) H 05/16/17 05:25 MCH 30.7 pg (27.0-31.0) 05/16/17 05:25 MCHC 32.1 g/dL (33.0-37.0) L 05/16/17 05:25 RDW 13.3 % (11.5-14.5) 05/16/17 05:25 Plt Count 242 K/uL (130-400) 05/16/17 05:25 MPV 8.9 fl (7.2-11.7) 05/16/17 05:25 Neut % (Auto) 67.2 % (50.0-75.0) 05/16/17 05:25 Lymph % (Auto) 19.7 % (20.0-40.0) L 05/16/17 05:25 [place] % (Auto) 10.3 % (0.0-10.0) H 05/16/17 05:25 Eos % (Auto) 2.2 % (0.0-4.0) 05/16/17 05:25 Baso % (Auto) 0.6 % (0.0-2.0) 05/16/17 05:25 Neut # 3.3 K/uL (1.8-7.0) 05/16/17 05:25 Lymph # 1.0 K/uL (1.0-4.3) 05/16/17 05:25 [place] # 0.5 K/uL (0.0-0.8) 05/16/17 05:25 Eos # 0.1 K/uL (0.0-0.7) 05/16/17 05:25 Baso # 0.0 K/uL (0.0-0.2) 05/16/17 05:25 PT 14.1 Seconds (9.8-13.1) H 05/12/17 13:55 INR 1.3 (0.9-1.2) H 05/12/17 13:55 APTT 35.3 Seconds (25.6-37.1) 05/12/17 13:55 pO2 37 mm/Hg (30-55) 05/12/17 13:45 VBG pH 7.51 (7.32-7.43) H 05/12/17 13:45 VBG pCO2 51 mmHg (40-60) 05/12/17 13:45 VBG HCO3 36.6 mmol/L 05/12/17 13:45 VBG Total CO2 42.3 mmol/L (22-28) H 05/12/17 13:45 VBG O2 Sat (Calc) 75.3 % (40-65) H 05/12/17 13:45 VBG Base Excess 15.7 mmol/L (0.0-2.0) H 05/12/17 13:45 VBG Potassium 5.6 mmol/L (3.6-5.2) H 05/12/17 13:45 Sodium 135.0 mmol/L (132-148) 05/12/17 13:45 Chloride 102.0 mmol/L (98-107) 05/12/17 13:45 Glucose 331 mg/dL (75-110) H 05/12/17 13:45 Lactate 2.1 mmol/L (0.7-2.1) 05/12/17 13:45 FiO2 21.0 % 05/12/17 13:45 Sodium 139 mmol/l (132-148) 05/16/17 05:25 Potassium 3.5 MMOL/L (3.6-5.0) L 05/16/17 05:25 Chloride 101 mmol/L (98-107) 05/16/17 05:25 Carbon Dioxide 26 mmol/L (22-30) 05/16/17 05:25 Anion Gap 16 (10-20) 05/16/17 05:25 BUN 12 mg/dl (9-20) 05/16/17 05:25 Creatinine 0.7 mg/dl (0.8-1.5) L 05/16/17 05:25 Est GFR ( Amer) > 60 05/16/17 05:25 Est GFR (Non-Af Amer) > 60 05/16/17 05:25 POC Glucose (mg/dL) 142 mg/dL (65-110) H 05/16/17 10:53 Random Glucose 138 mg/dL (75-110) H 05/16/17 05:25 Calcium 9.4 mg/dL (8.4-10.2) 05/16/17 05:25 Total Bilirubin 2.0 mg/dl (0.2-1.3) H 05/16/17 05:25 AST 107 U/L (17-59) H 05/16/17 05:25 ALT 146 U/L (21-72) H 05/16/17 05:25 Alkaline Phosphatase 771 U/L (38-126) H 05/16/17 05:25 Troponin I 0.0190 ng/mL (0.00-0.120) 05/12/17 15:10 Total Protein 7.2 G/DL (6.3-8.2) 05/16/17 05:25 Albumin 3.0 g/dL (3.5-5.0) L 05/16/17 05:25 Globulin 4.2 gm/dL (2.2-3.9) H 05/16/17 05:25 Albumin/Globulin Ratio 0.7 (1.0-2.1) L 05/16/17 05:25 Amylase 385 U/L (30-110) H 05/15/17 05:55 Lipase 1611 U/L (23-300) H 05/16/17 05:25 Venous Blood Potassium 5.6 mmol/L (3.6-5.2) H 05/12/17 13:45 Urine Color Elisa (YELLOW) 05/12/17 14:54 Urine Clarity Cloudy (Clear) 05/12/17 14:54 Urine pH 7.0 (5.0-8.0) 05/12/17 14:54 Ur Specific [place] 1.019 (1.003-1.030) 05/12/17 14:54 Urine Protein 30 mg/dL (NEGATIVE) 05/12/17 14:54 Urine Glucose (UA) 50 mg/dL (Normal) 05/12/17 14:54 Urine Ketones Negative mg/dL (NEGATIVE) 05/12/17 14:54 Urine Blood Negative (NEGATIVE) 05/12/17 14:54 Urine Nitrate Negative (NEGATIVE) 05/12/17 14:54 Urine Bilirubin Negative (NEGATIVE) 05/12/17 14:54 Urine Urobilinogen 4.0 mg/dL (0.2-1.0) 05/12/17 14:54 Ur Leukocyte Esterase Neg Mindy/uL (Negative) 05/12/17 14:54 Urine RBC (Auto) 7 /hpf (0-3) H 05/12/17 14:54 Urine Microscopic WBC 5 /hpf (0-5) 05/12/17 14:54 Urine Bacteria Rare (<OCC) 05/12/17 14:54 Hyaline Casts 6-10 /hpf (0-2) H 05/12/17 14:54 Blood Type B POSITIVE 05/12/17 14:14 Antibody Screen Negative 05/12/17 14:14 BBK History Checked Patient has bt 05/12/17 14:14 - Hospital Course Hospital Course: surgical/gi consult ivf, npo and adv diet slowly Discharge Exam - Head Exam Head Exam: ATRAUMATIC, NORMAL INSPECTION, NORMOCEPHALIC - Eye Exam Eye Exam: EOMI, Normal appearance, PERRL Pupil Exam: NORMAL ACCOMODATION, PERRL - Respiratory Exam Respiratory Exam: Clear to PA & Lateral, NORMAL BREATHING PATTERN, UNREMARKABLE - Cardiovascular Exam Cardiovascular Exam: REGULAR RHYTHM, RRR, +S1, +S2 - GI/Abdominal Exam GI & Abdominal Exam: Normal Bowel Sounds, Soft, Unremarkable - Extremities Exam Extremities exam: full ROM, normal capillary refill, normal inspection, pedal pulses present - Back Exam Back exam: FULL ROM - Neurological Exam Neurological exam: Alert, CN II-XII Intact, Normal Gait, Oriented x3, Reflexes Normal - Psychiatric Exam Psychiatric exam: Normal Affect, Normal Mood - Skin Skin Exam: Dry, Intact, Normal Color, Warm Discharge Plan - Discharge Medications Prescriptions: levoFLOXacin 500 mg in D5W [Levaquin 500MG] 500 mg IVPB DAILY #7 bag - Follow Up Plan Condition: STABLE Disposition: REHAB FACILITY/REHAB UNIT Additional Instructions: for dc today. cleared by surgery and gi. bw noted. no f/c, n/v/d. no cough/ congestion. cxr noted and repeated w/ infiltrate. pt has not wbc count and no s/s pna but since is s/p cva nad on tube feedings will dc to [facility] w/ levaquin. outpt cbc, cmp, lipase this week. final dx-pancreatitis, lung infiltrate
[2017-05-16 16:14] VITALS: BP 157/67; PULSE 76; TEMP 97.5; O2SAT 99
== END 2017-05-16 18:25 | DRG 440 ==
LOC: H.ER 13:28 → H.ERHOLD 16:39 → H.MEDSURG1 18:32
PROVIDERS: ADMIT Family Medicine; ATTEND Family Medicine
DX: K85.90 Acute pancreatitis without necrosis or infection, unspecified (principal); E11.9 Type 2 diabetes mellitus without complications; I10 Essential (primary) hypertension; Z79.82 Long term (current) use of aspirin; Z79.899 Other long term (current) drug therapy; Z86.73 Personal history of transient ischemic attack (TIA), and cerebral infarction without residual deficits; R32 Unspecified urinary incontinence; R74.0 Nonspecific elevation of levels of transaminase and lactic acid dehydrogenase [LDH]; R79.89 Other specified abnormal findings of blood chemistry; R91.8 Other nonspecific abnormal finding of lung field

== ENCOUNTER 2017-06-08 22:31 | Observation (INO) | payer MEDICARE, MEDICAID ==
[2017-06-08 22:31] VITALS: BMI 24.4
[2017-06-09 00:19] LABS: BASO % 0.4 % (0.0-2.0); EOS # 0.2 K/uL (0.0-0.7); EOS % 4.6 % (0.0-4.0); HEMOGLOBIN 7.3 g/dL (12.0-18.0); LYMPH # 1.1 K/uL (1.0-4.3); LYMPH % 22.1 % (20.0-40.0); MEAN CELL VOLUME 91.7 fl (80.0-94.0); MEAN CORPUSCULAR HEMOGLOBIN 29.2 pg (27.0-31.0); MEAN CORPUSCULAR HGB CONC 31.8 g/dL (33.0-37.0); MEAN PLATELET VOLUME 8.4 fl (7.2-11.7); MONO # 0.6 K/uL (0.0-0.8); MONO % 12.7 % (0.0-10.0); NEUT # 3.1 K/uL (1.8-7.0); NEUT % 60.2 % (50.0-75.0); NRBC % 0.1 % (0.0-0.0); RBC 2.49 Mil/uL (4.40-5.90); RED CELL DISTRIBUTION WIDTH 13.5 % (11.5-14.5); WHITE BLOOD COUNT 5.1 K/uL (4.8-10.8)
--- NOTE | 2017-06-09 00:32 | ED PDOC ---
HPI: General Adult Time Seen by Provider: 06/08/17 22:36 Chief Complaint (Nursing): Abnormal Labs Chief Complaint (Provider): Abnormal Labs History/Exam Limitations: clinical condition Onset/Duration Of Symptoms: Hrs (2 hours ago) Additional Complaint(s): 66 yo male, brought in by EMS from his custodial, with a history of stroke, pancreatitis, hypertension, and diabetes, presents to the ED for evaluation after abnormal lab work was obtained at the custodial, reporting a hemoglobin level of 7.7, onset of 2 hours ago. Of note, patient is history and review of systems are limited due to the patient's clinical condition, aphasia, allowing him to solely answer yes or no questions by nodding his head. Patient reports that he currently does not understand why he is in the hospital, and only complains of generalized pain. He denies shortness of breath, chest pain, or weakness. Past Medical History Reviewed: Historical Data Vital Signs: Last Vital Signs Temp 98.8 F 06/08/17 22:34 Pulse 98 H 06/08/17 22:34 Resp 18 06/08/17 22:34 BP 127/64 06/08/17 22:34 Pulse Ox 100 06/08/17 22:34 - Medical History PMH: CVA, Depression, Diabetes, HTN Denies: Chronic Kidney Disease - Surgical History Surgical History: No Surg Hx - Family History Family History: States: Unknown Family Hx - Living Arrangements Living Arrangements: Jail/Assist Lvng - Social History Current smoker - smoking cessation education provided: No Ex-Smoker (has not smoked in the last 12 months): No Alcohol: None Drugs: Denies - Home Medications Home Medications: Ambulatory Orders Medication Instructions Recorded Acetaminophen [Tylenol 325mg tab] 650 mg GT Q4H PRN 05/12/17 Acetaminophen [Tylenol 325mg tab] 650 mg GT Q4H PRN 05/12/17 Aspirin 325 mg GT DAILY 05/12/17 Carvedilol [Coreg] 12.5 mg GT Q12H 05/12/17 Escitalopram [Lexapro] 5 mg GT DAILY 05/12/17 Heparin 5,000 unit SC Q8H 05/12/17 Insulin Lispro [humALOG] 2 - 10 unit SC ACHS 05/12/17 Lisinopril [Zestril] 20 mg GT DAILY 05/12/17 Mag Hydrox/Aluminum Hyd/Simeth 30 ml PO Q4H PRN 05/12/17 [Maalox Advanced Suspension] Magnesium Hydroxide [Milk Of 30 ml PO DAILY PRN 05/12/17 Magnesia] Pantoprazole Sodium [Protonix] 40 mg GT DAILY 05/12/17 Rosuvastatin Calcium [Crestor] 10 mg GT HS 05/12/17 Silver Sulfadiazine 1% [Silvadene 1 appl TOP QSHIFT 05/12/17 1%] amLODIPine [Norvasc] 10 mg GT DAILY 05/12/17 levoFLOXacin [Levaquin] 750 mg GT QPM 05/12/17 levoFLOXacin 500 mg in D5W 500 mg IVPB DAILY #7 bag 05/16/17 [Levaquin 500MG] - Allergies Allergies/Adverse Reactions: Allergies Allergy/AdvReac Type Severity Reaction Status Date / Time No Known Allergies Allergy Verified 05/12/17 13:29 Review of Systems ROS Statement: Except As Marked, All Systems Reviewed And Found Negative Constitutional: Positive for: Other (generalized pain). Negative for: Weakness Cardiovascular: Negative for: Chest Pain Respiratory: Negative for: Shortness of Breath Physical Exam - Reviewed Nursing Documentation Reviewed: Yes Vital Signs Reviewed: Yes - Physical Exam Appears: Positive for: No Acute Distress. Negative for: Well (appears chronicly ill) Head Exam: Positive for: ATRAUMATIC, NORMAL INSPECTION, NORMOCEPHALIC Skin: Positive for: Warm, Dry, Pallor Eye Exam: Positive for: EOMI, Normal appearance, PERRL ENT: Positive for: Other (dry mucous membranes) Gastrointestinal/Abdominal: Positive for: Other (gastric tube is in place with no signs of infection) Neurologic/Psych: Positive for: Alert, Aphasia (but able to answer yes or no questions by nodding his head), Facial Droop (left sided) - ECG O2 Sat by Pulse Oximetry: 100 (RA) Pulse Ox Interpretation: Normal Medical Decision Making Medical Decision Making: Time: --:18 Impression: --Anemia Plan: --blood type and screen --ECG --labs --b-type natriuretic --ferritin --lipase --magnesium --phosporous --troponin I --Ed urine dip --PTT --PT --Chest X-ray Portable --Blood Culture --Urine --Cardiac --Iv Insertion --Glucose, Blood, Poc --Occult Blood, Stool --Urinalysis Reassess --00:00 patient to be signed out to Dr. Mandujano pending labs and work up. Scribe Attestation: Documented by Les Mcginnis acting as a scribe for Leelee Ruelas MD. Provider Attestation: All medical record entries made by the Scribe were at my direction and personally dictated by me. I have reviewed the chart and agree that the record accurately reflects my personal performance of the history, physical exam, medical decision making, and the department course for this patient. I have also personally directed, reviewed, and agree with the discharge instructions and disposition. Disposition - Clinical Impression Clinical Impression: Anemia - Patient ED Disposition Is Patient to be Admitted: Transfer of Care Discussed With : Sidney Mandujano Doctor Will See Patient In The: ED - Disposition Disposition: Transfer of Care Disposition Time: 00:00 Condition: FAIR Patient Signed Over To: Sidney Mandujano
[2017-06-09 00:36] LABS: ALB/GLOB RATIO 0.8 (1.0-2.1); ALBUMIN 3.2 g/dL (3.5-5.0); ALT/SGPT 171 U/L (21-72); AST/SGOT 177 U/L (17-59); BLOOD UREA NITROGEN 57 mg/dl (9-20); CALCIUM 9.5 mg/dL (8.4-10.2); GFR AFRICAN-AMERICAN > 60; GFR NON-AFRICAN AMERICAN > 60; LIPASE 551 U/L (23-300); MAGNESIUM 2.3 MG/DL (1.6-2.3)
[2017-06-09 00:39] LABS: INR 1.1 (0.9-1.2); PARTIAL THROMBOPLASTIN TIME 29.5 Seconds (25.6-37.1); PROTHROMBIN TIME 12.6 Seconds (9.8-13.1)
--- NOTE | 2017-06-09 00:42 | ED PDOC ---
- Laboratory Results Result Diagrams: 06/09/17 00:15 06/09/17 00:15 - ECG O2 Sat by Pulse Oximetry: 100 (RA) Pulse Ox Interpretation: Normal Medical Decision Making Medical Decision Making: Time: --00:00 Reassess --patient signed out to the provider by Dr. Leelee Ruelas pending labs and work up 0200 Bloodwork reveals anemia and abnormal LFTs, however patient had abnormal LFTs during last visit. Lipase is trending down. Will admit for anemia. Scribe Attestation: Documented by Les Mcginnis acting as a scribe for Sidney Mandujano MD. Provider Attestation: All medical record entries made by the Scribe were at my direction and personally dictated by me. I have reviewed the chart and agree that the record accurately reflects my personal performance of the history, physical exam, medical decision making, and the department course for this patient. I have also personally directed, reviewed, and agree with the discharge instructions and disposition. Disposition - Clinical Impression Clinical Impression: Anemia - POA Present On Arrival: None - Disposition Disposition: Hospitalized as Observation Patient Disposition Time: 02:00 Condition: GUARDED
[2017-06-09 00:46] LABS: B-TYPE NATRIURETIC PEPTIDE 2920 pg/ml (0-900)
--- NOTE | 2017-06-09 07:48 | CP.PCM.HP ---
History of Present Illness - History of Present Illness History of Present Illness: pt admitted for anemia. in nocomplaints at present. no distress/sob. nof /c, n/v /d. bw noted. lft trending down. pt on unit 1/2 prbc. consults ordered. Present on Admission - Present on Admission Any Indicators Present on Admission: Yes History of Uncontrolled Diabetes: Yes Review of Systems - Review of Systems Systems not reviewed;Unavailable: Altered Mental Status Past Patient History - Past Medical History & Family History Past Medical History?: Yes - Past Social History Alcohol: None Drugs: Denies - CARDIAC Hx Hypertension: Yes - PULMONARY Hx Respiratory Disorders: No - NEUROLOGICAL HX Cerebrovascular Accident: Yes - HEENT Hx HEENT Problems: No - RENAL Hx Chronic Kidney Disease: No - ENDOCRINE/METABOLIC Hx Endocrine Disorders: Yes - HEMATOLOGICAL/ONCOLOGICAL Hx Blood Disorders: No - INTEGUMENTARY Hx Dermatological Problems: No - MUSCULOSKELETAL/RHEUMATOLOGICAL Hx Musculoskeletal Disorders: No Hx Falls: No - GASTROINTESTINAL Hx Gastrointestinal Disorders: No Other/Comment: Pt has GT tube placed on the right side of the abdomen. - GENITOURINARY/GYNECOLOGICAL Hx Genitourinary Disorders: Yes Hx Incontinence: Yes - PSYCHIATRIC Hx Depression: Yes - SURGICAL HISTORY Hx Surgeries: No Other/Comment: gt - ANESTHESIA Hx Anesthesia: Yes Meds Allergies/Adverse Reactions: Allergies Allergy/AdvReac Type Severity Reaction Status Date / Time No Known Allergies Allergy Verified 05/12/17 13:29 Physical Exam - Constitutional Appears: Non-toxic, No Acute Distress, Chronically Ill - Head Exam Head Exam: ATRAUMATIC, NORMAL INSPECTION, NORMOCEPHALIC - Eye Exam Eye Exam: EOMI, Normal appearance, PERRL Pupil Exam: NORMAL ACCOMODATION, PERRL - ENT Exam ENT Exam: Mucous Membranes Moist, Normal Exam - Neck Exam Neck exam: Positive for: Normal Inspection - Respiratory Exam Respiratory Exam: Clear to Auscultation Bilateral, NORMAL BREATHING PATTERN - Cardiovascular Exam Cardiovascular Exam: REGULAR RHYTHM, RRR, +S1, +S2 - GI/Abdominal Exam GI & Abdominal Exam: Normal Bowel Sounds, Soft. absent: Tenderness - Extremities Exam Extremities exam: Positive for: full ROM, normal capillary refill, normal inspection, pedal pulses present - Back Exam Back exam: NORMAL INSPECTION - Neurological Exam Neurological exam: Alert, CN II-XII Intact, Normal Gait, Oriented x3, Reflexes Normal - Psychiatric Exam Psychiatric exam: Normal Affect, Normal Mood - Skin Skin Exam: Dry, Intact, Normal Color, Warm Results - Vital Signs Recent Vital Signs: Last Vital Signs Temp 98.1 F 06/09/17 05:30 Pulse 88 06/09/17 05:30 Resp 18 06/09/17 05:30 BP 140/61 06/09/17 05:30 Pulse Ox 100 06/09/17 05:33 - Labs Result Diagrams: 06/09/17 00:15 06/09/17 00:15 Labs: Laboratory Results - last 24 hr 06/09/17 06/09/17 06/09/17 00:02 00:15 00:15 WBC 5.1 RBC 2.49 L Hgb 7.3 L Hct 22.8 L MCV 91.7 D MCH 29.2 MCHC 31.8 L RDW 13.5 Plt Count 235 MPV 8.4 Neut % (Auto) 60.2 Lymph % (Auto) 22.1 [place] % (Auto) 12.7 H Eos % (Auto) 4.6 H Baso % (Auto) 0.4 Neut # (Auto) 3.1 Lymph # (Auto) 1.1 [place] # (Auto) 0.6 Eos # (Auto) 0.2 Baso # (Auto) 0.0 PT INR APTT Sodium 138 Potassium 4.9 Chloride 97 L Carbon Dioxide 30 Anion Gap 16 BUN 57 H Creatinine 1.2 Est GFR ( Amer) > 60 Est GFR (Non-Af Amer) > 60 Random Glucose 276 H Lactic Acid Calcium 9.5 Phosphorus 4.9 H Magnesium 2.3 Ferritin 3340.0 H Total Bilirubin 0.5 AST 177 H D ALT 171 H Alkaline Phosphatase 802 H Troponin I 0.0840 NT-Pro-B Natriuret Pep 2920 H Total Protein 7.2 Albumin 3.2 L Globulin 4.0 H Albumin/Globulin Ratio 0.8 L Lipase 551 H Stool Occult Blood Blood Type B POSITIVE Antibody Screen Negative Crossmatch See Detail BBK History Checked Patient has bt 06/09/17 06/09/17 06/09/17 00:15 00:15 00:29 WBC RBC Hgb Hct MCV MCH MCHC RDW Plt Count MPV Neut % (Auto) Lymph % (Auto) [place] % (Auto) Eos % (Auto) Baso % (Auto) Neut # (Auto) Lymph # (Auto) [place] # (Auto) Eos # (Auto) Baso # (Auto) PT 12.6 INR 1.1 APTT 29.5 Sodium Potassium Chloride Carbon Dioxide Anion Gap BUN Creatinine Est GFR ( Amer) Est GFR (Non-Af Amer) Random Glucose Lactic Acid 1.2 Calcium Phosphorus Magnesium Ferritin Total Bilirubin AST ALT Alkaline Phosphatase Troponin I NT-Pro-B Natriuret Pep Total Protein Albumin Globulin Albumin/Globulin Ratio Lipase Stool Occult Blood Negative Blood Type Antibody Screen Crossmatch BBK History Checked Assessment & Plan (1) Anemia Assessment and Plan: 2 unit prbc heme/onc stool occult negative Status: Acute (2) DVT prophylaxis Assessment and Plan: scd and ae hose hold anticoag r/t anemia Status: Acute (3) Elevated LFTs Assessment and Plan: trending down, will monitor Status: Acute (4) Elevated brain natriuretic peptide (BNP) level Assessment and Plan: cardio consult monitor for chf Status: Acute Decision To Admit - Pt Status Changed To: Hospital Disposition Of: Observation - . Bed Request Type: Med/Surg Admitting Physician: Guilherme Jimenez
[2017-06-09] MEDS ORDERED: Acetaminophen 325 MG/10.15 ML GT PRN ×2 (07:49)
[2017-06-09] MEDS ORDERED: Alum-Mag Hydrox-Simethicone Susp (30 mL) PO PRN (07:49)
[2017-06-09] MEDS ORDERED: Magnesium Hydroxide Susp 30 ml UD PO PRN (07:49)
[2017-06-09] MEDS ORDERED: Silver Sulfadiazine 1% Cream (20 gm) TOP SCH (08:00)
[2017-06-09] MEDS ORDERED: Pantoprazole 40 mg EC Tab PO SCH (09:00)
[2017-06-09] MEDS: Pantoprazole 40 mg Susp UD GT SCH (09:31)
[2017-06-09] MEDS: Famotidine 40 MG/5 ML PEG SCH ×2 (09:37→23:18)
--- NOTE | 2017-06-09 09:38 | RAD ---
HISTORY: anemia COMPARISON: Chest radiograph dated 05/16/2017 FINDINGS: LUNGS: Worsening patchy infiltrative changes in the right lung, with more involvement of the right upper lobe. Similar infiltrative changes again seen in the left lung base. PLEURA: No significant pleural effusion identified, no pneumothorax apparent. CARDIOVASCULAR: Atherosclerotic aortic calcifications. Cardiomediastinal silhouette stably enlarged. OSSEOUS STRUCTURES: Unchanged. VISUALIZED UPPER ABDOMEN: Normal. OTHER FINDINGS: None. IMPRESSION: Worsening opacity infiltrative changes in the right lung, with more involvement of the right upper lobe lung. Similar infiltrative changes again seen in the left lung base.
[2017-06-09 16:12] LABS: BASO % 0.4 % (0.0-2.0); EOS # 0.2 K/uL (0.0-0.7); LYMPH # 1.1 K/uL (1.0-4.3); LYMPH % 19.3 % (20.0-40.0); MEAN CELL VOLUME 88.8 fl (80.0-94.0); MEAN CORPUSCULAR HEMOGLOBIN 29.3 pg (27.0-31.0); MEAN CORPUSCULAR HGB CONC 32.9 g/dL (33.0-37.0); MEAN PLATELET VOLUME 8.6 fl (7.2-11.7); MONO # 0.8 K/uL (0.0-0.8); MONO % 13.4 % (0.0-10.0); NEUT # 3.7 K/uL (1.8-7.0); NEUT % 62.9 % (50.0-75.0); RBC 3.47 Mil/uL (4.40-5.90); RED CELL DISTRIBUTION WIDTH 14.8 % (11.5-14.5); WHITE BLOOD COUNT 5.8 K/uL (4.8-10.8)
[2017-06-09 16:14] LABS: HEMOGLOBIN 10.2 g/dL (12.0-18.0)
[2017-06-09] MEDS: Insulin Lispro (humaLOG) 100 Units/ml Inj SC SCH ×2 (16:53→23:05)
[2017-06-09 16:59] LABS: ALB/GLOB RATIO 0.8 (1.0-2.1); ALBUMIN 3.4 g/dL (3.5-5.0); ALT/SGPT 161 U/L (21-72); AST/SGOT 117 U/L (17-59); BLOOD UREA NITROGEN 50 mg/dl (9-20); CALCIUM 9.8 mg/dL (8.4-10.2); GFR AFRICAN-AMERICAN > 60; GFR NON-AFRICAN AMERICAN > 60
--- NOTE | 2017-06-09 19:15 | CP.PCM.CON ---
History of Present Illness - History of Present Illness History of Present Illness: I was asked to see patient by Dr Romero. Patient is a 66 year old retirement resident with previous CVA who presents with anemia. Hgb was 7.7. The patient was noted to have chest pain, although is without pain at the moment. Review of Systems - Review of Systems Systems not reviewed;Unavailable: Altered Mental Status Past Patient History - Past Medical History & Family History Past Medical History?: Yes - Past Social History Alcohol: None Drugs: Denies - CARDIAC Hx Hypertension: Yes - PULMONARY Hx Respiratory Disorders: No - NEUROLOGICAL HX Cerebrovascular Accident: Yes - HEENT Hx HEENT Problems: No - RENAL Hx Chronic Kidney Disease: No - ENDOCRINE/METABOLIC Hx Endocrine Disorders: Yes - HEMATOLOGICAL/ONCOLOGICAL Hx Blood Disorders: No - INTEGUMENTARY Hx Dermatological Problems: No - MUSCULOSKELETAL/RHEUMATOLOGICAL Hx Musculoskeletal Disorders: No Hx Falls: No - GASTROINTESTINAL Hx Gastrointestinal Disorders: No Other/Comment: Pt has GT tube placed on the right side of the abdomen. - GENITOURINARY/GYNECOLOGICAL Hx Genitourinary Disorders: Yes Hx Incontinence: Yes - PSYCHIATRIC Hx Depression: Yes - SURGICAL HISTORY Hx Surgeries: No Other/Comment: gt - ANESTHESIA Hx Anesthesia: Yes Meds Allergies/Adverse Reactions: Allergies Allergy/AdvReac Type Severity Reaction Status Date / Time No Known Allergies Allergy Verified 05/12/17 13:29 - Medications Medications: Current Medications Acetaminophen (Tylenol 325mg/10.15ml Ud) 650 mg GT Q4H PRN PRN Reason: Temp >100 Acetaminophen (Tylenol 325mg/10.15ml Ud) 650 mg GT Q4H PRN PRN Reason: Pain, Mild (1-3) Al Hydrox/Mg Hydrox/Simethicone (Maalox Plus 30 Ml) 30 ml PO Q4H PRN PRN Reason: heartburn/indigestion Amlodipine Besylate (Norvasc) 10 mg GT DAILY [facility] Last Admin: 06/09/17 09:26 Dose: 10 mg Aspirin (Aspirin) 325 mg GT DAILY [facility] Last Admin: 06/09/17 09:39 Dose: 325 mg Atorvastatin Calcium (Lipitor) 20 mg GT HS [facility] Last Admin: 06/09/17 09:30 Dose: 20 mg Carvedilol (Coreg) 12.5 mg GT Q12H [facility] Last Admin: 06/09/17 09:34 Dose: 12.5 mg Escitalopram Oxalate (Lexapro) 5 mg GT DAILY [facility] Last Admin: 06/09/17 09:31 Dose: 5 mg Famotidine (Pepcid) 20 mg PEG Q12 [facility] Last Admin: 06/09/17 09:37 Dose: 20 mg Heparin Sodium (Porcine) (Heparin) 5,000 units SC Q8H [facility] PRN Reason: Protocol Last Admin: 06/09/17 16:42 Dose: 5,000 units Insulin Human Lispro (Humalog) 0 units SC ACHS [facility] PRN Reason: Protocol Last Admin: 06/09/17 16:53 Dose: 6 units Lisinopril (Zestril) 20 mg GT DAILY [facility] Last Admin: 06/09/17 09:28 Dose: 20 mg Magnesium Hydroxide (Milk Of Magnesia) 30 ml PO DAILY PRN PRN Reason: Constipation Ondansetron HCl (Zofran Tab) 4 mg GT Q6H PRN PRN Reason: Nausea/Vomiting Pantoprazole Sodium (Protonix Susp) 40 mg GT DAILY [facility] Last Admin: 06/09/17 09:31 Dose: 40 mg Silver Sulfadiazine (Silvadene 1% 20 Gm) 1 ea TOP QSHIFT [facility] Physical Exam - Constitutional Appears: Chronically Ill - Head Exam Head Exam: NORMAL INSPECTION - Eye Exam Eye Exam: Normal appearance - ENT Exam ENT Exam: Mucous Membranes Moist - Neck Exam Neck exam: Positive for: Full Rom - Respiratory Exam Respiratory Exam: Decreased Breath Sounds - Cardiovascular Exam Cardiovascular Exam: REGULAR RHYTHM - GI/Abdominal Exam GI & Abdominal Exam: Normal Bowel Sounds - Rectal Exam Rectal Exam: Deferred - Extremities Exam Extremities exam: Negative for: pedal edema - Back Exam Back exam: NORMAL INSPECTION - Neurological Exam Neurological exam: Alert - Psychiatric Exam Psychiatric exam: Flat Affect - Skin Skin Exam: Normal Color Results - Vital Signs Recent Vital Signs: Last Vital Signs Temp 98.6 F 06/09/17 12:54 Pulse 91 H 06/09/17 12:54 Resp 20 06/09/17 10:06 BP 162/79 H 06/09/17 12:54 Pulse Ox 100 06/09/17 12:54 - Labs Result Diagrams: 06/09/17 16:00 06/09/17 15:41 Labs: Laboratory Results - last 24 hr 06/09/17 06/09/17 06/09/17 00:02 00:15 00:15 WBC 5.1 RBC 2.49 L Hgb 7.3 L Hct 22.8 L MCV 91.7 D MCH 29.2 MCHC 31.8 L RDW 13.5 Plt Count 235 MPV 8.4 Neut % (Auto) 60.2 Lymph % (Auto) 22.1 [place] % (Auto) 12.7 H Eos % (Auto) 4.6 H Baso % (Auto) 0.4 Neut # (Auto) 3.1 Lymph # (Auto) 1.1 [place] # (Auto) 0.6 Eos # (Auto) 0.2 Baso # (Auto) 0.0 PT INR APTT Sodium 138 Potassium 4.9 Chloride 97 L Carbon Dioxide 30 Anion Gap 16 BUN 57 H Creatinine 1.2 Est GFR ( Amer) > 60 Est GFR (Non-Af Amer) > 60 POC Glucose (mg/dL) Random Glucose 276 H Lactic Acid Calcium 9.5 Phosphorus 4.9 H Magnesium 2.3 Ferritin 3340.0 H Total Bilirubin 0.5 AST 177 H D ALT 171 H Alkaline Phosphatase 802 H Troponin I 0.0840 NT-Pro-B Natriuret Pep 2920 H Total Protein 7.2 Albumin 3.2 L Globulin 4.0 H Albumin/Globulin Ratio 0.8 L Lipase 551 H Stool Occult Blood Blood Type B POSITIVE Antibody Screen Negative Crossmatch See Detail BBK History Checked Patient has bt 06/09/17 06/09/17 06/09/17 00:15 00:15 00:29 WBC RBC Hgb Hct MCV MCH MCHC RDW Plt Count MPV Neut % (Auto) Lymph % (Auto) [place] % (Auto) Eos % (Auto) Baso % (Auto) Neut # (Auto) Lymph # (Auto) [place] # (Auto) Eos # (Auto) Baso # (Auto) PT 12.6 INR 1.1 APTT 29.5 Sodium Potassium Chloride Carbon Dioxide Anion Gap BUN Creatinine Est GFR ( Amer) Est GFR (Non-Af Amer) POC Glucose (mg/dL) Random Glucose Lactic Acid 1.2 Calcium Phosphorus Magnesium Ferritin Total Bilirubin AST ALT Alkaline Phosphatase Troponin I NT-Pro-B Natriuret Pep Total Protein Albumin Globulin Albumin/Globulin Ratio Lipase Stool Occult Blood Negative Blood Type Antibody Screen Crossmatch BBK History Checked 06/09/17 06/09/17 06/09/17 15:32 15:41 16:00 WBC 5.8 RBC 3.47 L Hgb 10.2 L D Hct 30.8 L MCV 88.8 D MCH 29.3 MCHC 32.9 L RDW 14.8 H Plt Count 250 MPV 8.6 Neut % (Auto) 62.9 Lymph % (Auto) 19.3 L [place] % (Auto) 13.4 H Eos % (Auto) 4.0 Baso % (Auto) 0.4 Neut # (Auto) 3.7 Lymph # (Auto) 1.1 [place] # (Auto) 0.8 Eos # (Auto) 0.2 Baso # (Auto) 0.0 PT INR APTT Sodium 140 Potassium 5.0 Chloride 100 Carbon Dioxide 28 Anion Gap 17 BUN 50 H Creatinine 1.1 Est GFR ( Amer) > 60 Est GFR (Non-Af Amer) > 60 POC Glucose (mg/dL) 308 H Random Glucose 327 H Lactic Acid Calcium 9.8 Phosphorus Magnesium Ferritin Total Bilirubin 0.8 AST 117 H D ALT 161 H Alkaline Phosphatase 793 H Troponin I NT-Pro-B Natriuret Pep Total Protein 7.7 Albumin 3.4 L Globulin 4.3 H Albumin/Globulin Ratio 0.8 L Lipase Stool Occult Blood Blood Type Antibody Screen Crossmatch BBK History Checked 06/09/17 06/09/17 16:51 17:56 WBC RBC Hgb Hct MCV MCH MCHC RDW Plt Count MPV Neut % (Auto) Lymph % (Auto) [place] % (Auto) Eos % (Auto) Baso % (Auto) Neut # (Auto) Lymph # (Auto) [place] # (Auto) Eos # (Auto) Baso # (Auto) PT INR APTT Sodium Potassium Chloride Carbon Dioxide Anion Gap BUN Creatinine Est GFR ( Amer) Est GFR (Non-Af Amer) POC Glucose (mg/dL) 304 H 296 H Random Glucose Lactic Acid Calcium Phosphorus Magnesium Ferritin Total Bilirubin AST ALT Alkaline Phosphatase Troponin I NT-Pro-B Natriuret Pep Total Protein Albumin Globulin Albumin/Globulin Ratio Lipase Stool Occult Blood Blood Type Antibody Screen Crossmatch BBK History Checked - EKG Data EKG Interpreted by: Myself Assessment & Plan - Assessment and Plan (Free Text) Assessment: recommend transufion as needed. can have intermittent myocardial ischemia due to low Hgb. recommend medical therapy. Off antiplatelet therapy due to anemia.
[2017-06-09 19:57] LABS: URINE BACTERIA OCC (<OCC); URINE BILIRUBIN NEGATIVE (NEGATIVE); URINE BLOOD NEGATIVE (NEGATIVE); URINE CLARITY CLEAR (Clear); URINE COLOR YELLOW (YELLOW); URINE GLUCOSE (UA) >=500 mg/dL (Normal); URINE LEUKOCYTE ESTERASE NEG Leu/uL (Negative); URINE NITRATE NEGATIVE (NEGATIVE); URINE PROTEIN 30 mg/dL (NEGATIVE); URINE UROBILINOGEN 0.2-1.0 mg/dL (0.2-1.0)
--- NOTE | 2017-06-09 21:57 | CP.PCM.CON ---
History of Present Illness - History of Present Illness History of Present Illness: 66 year old male with a history of CVA with aphasia, HTN, DM, presenting from the [place] after being found to be anemic. The patient was found to have a hgb of 7.7 and is s/p 2U PRBC. He denies abnormal bleeding and bruising. Stool occult blood is negative. Past medical history: CVA with aphasia, HTN, DM Past surgical, family, social history cannot be obtained Allergies: NKA Review of systems cannot be obtained. Past Patient History - Past Medical History & Family History Past Medical History?: Yes - Past Social History Alcohol: None Drugs: Denies - CARDIAC Hx Hypertension: Yes - PULMONARY Hx Respiratory Disorders: No - NEUROLOGICAL HX Cerebrovascular Accident: Yes - HEENT Hx HEENT Problems: No - RENAL Hx Chronic Kidney Disease: No - ENDOCRINE/METABOLIC Hx Endocrine Disorders: Yes - HEMATOLOGICAL/ONCOLOGICAL Hx Blood Disorders: No - INTEGUMENTARY Hx Dermatological Problems: No - MUSCULOSKELETAL/RHEUMATOLOGICAL Hx Musculoskeletal Disorders: No Hx Falls: No - GASTROINTESTINAL Hx Gastrointestinal Disorders: No Other/Comment: Pt has GT tube placed on the right side of the abdomen. - GENITOURINARY/GYNECOLOGICAL Hx Genitourinary Disorders: Yes Hx Incontinence: Yes - PSYCHIATRIC Hx Depression: Yes - SURGICAL HISTORY Hx Surgeries: No Other/Comment: gt - ANESTHESIA Hx Anesthesia: Yes Meds Allergies/Adverse Reactions: Allergies Allergy/AdvReac Type Severity Reaction Status Date / Time No Known Allergies Allergy Verified 05/12/17 13:29 - Medications Medications: Current Medications Acetaminophen (Tylenol 325mg/10.15ml Ud) 650 mg GT Q4H PRN PRN Reason: Temp >100 Acetaminophen (Tylenol 325mg/10.15ml Ud) 650 mg GT Q4H PRN PRN Reason: Pain, Mild (1-3) Al Hydrox/Mg Hydrox/Simethicone (Maalox Plus 30 Ml) 30 ml PO Q4H PRN PRN Reason: heartburn/indigestion Amlodipine Besylate (Norvasc) 10 mg GT DAILY [facility] Last Admin: 06/09/17 09:26 Dose: 10 mg Aspirin (Aspirin) 325 mg GT DAILY [facility] Last Admin: 06/09/17 09:39 Dose: 325 mg Atorvastatin Calcium (Lipitor) 20 mg GT HS [facility] Last Admin: 06/09/17 09:30 Dose: 20 mg Carvedilol (Coreg) 12.5 mg GT Q12H [facility] Last Admin: 06/09/17 20:53 Dose: 12.5 mg Escitalopram Oxalate (Lexapro) 5 mg GT DAILY [facility] Last Admin: 06/09/17 09:31 Dose: 5 mg Famotidine (Pepcid) 20 mg PEG Q12 [facility] Last Admin: 06/09/17 09:37 Dose: 20 mg Heparin Sodium (Porcine) (Heparin) 5,000 units SC Q8H [facility] PRN Reason: Protocol Last Admin: 06/09/17 16:42 Dose: 5,000 units Ceftriaxone Sodium 1 gm/ (Sodium Chloride) 100 mls @ 100 mls/hr IVPB DAILY [facility] PRN Reason: Protocol Insulin Human Lispro (Humalog) 0 units SC ACHS [facility] PRN Reason: Protocol Last Admin: 06/09/17 16:53 Dose: 6 units Lisinopril (Zestril) 20 mg GT DAILY [facility] Last Admin: 06/09/17 09:28 Dose: 20 mg Magnesium Hydroxide (Milk Of Magnesia) 30 ml PO DAILY PRN PRN Reason: Constipation Ondansetron HCl (Zofran Tab) 4 mg GT Q6H PRN PRN Reason: Nausea/Vomiting Pantoprazole Sodium (Protonix Susp) 40 mg GT DAILY [facility] Last Admin: 06/09/17 09:31 Dose: 40 mg Silver Sulfadiazine (Silvadene 1% 20 Gm) 1 ea TOP QSHIFT [facility] Physical Exam - Head Exam Head Exam: ATRAUMATIC - Eye Exam Eye Exam: Normal appearance - ENT Exam ENT Exam: Mucous Membranes Dry - Respiratory Exam Respiratory Exam: NORMAL BREATHING PATTERN - Cardiovascular Exam Cardiovascular Exam: +S1, +S2 - GI/Abdominal Exam GI & Abdominal Exam: Normal Bowel Sounds Results - Vital Signs Recent Vital Signs: Last Vital Signs Temp 98.6 F 06/09/17 20:12 Pulse 90 06/09/17 20:53 Resp 18 06/09/17 20:12 BP 172/79 H 06/09/17 20:53 Pulse Ox 97 06/09/17 20:12 - Labs Result Diagrams: 06/09/17 16:00 06/09/17 15:41 Labs: Laboratory Results - last 24 hr 06/09/17 06/09/17 06/09/17 00:02 00:15 00:15 WBC 5.1 RBC 2.49 L Hgb 7.3 L Hct 22.8 L MCV 91.7 D MCH 29.2 MCHC 31.8 L RDW 13.5 Plt Count 235 MPV 8.4 Neut % (Auto) 60.2 Lymph % (Auto) 22.1 Bartholomew % (Auto) 12.7 H Eos % (Auto) 4.6 H Baso % (Auto) 0.4 Neut # (Auto) 3.1 Lymph # (Auto) 1.1 Bartholomew # (Auto) 0.6 Eos # (Auto) 0.2 Baso # (Auto) 0.0 PT INR APTT Sodium 138 Potassium 4.9 Chloride 97 L Carbon Dioxide 30 Anion Gap 16 BUN 57 H Creatinine 1.2 Est GFR ( Amer) > 60 Est GFR (Non-Af Amer) > 60 POC Glucose (mg/dL) Random Glucose 276 H Lactic Acid Calcium 9.5 Phosphorus 4.9 H Magnesium 2.3 Ferritin 3340.0 H Total Bilirubin 0.5 AST 177 H D ALT 171 H Alkaline Phosphatase 802 H Troponin I 0.0840 NT-Pro-B Natriuret Pep 2920 H Total Protein 7.2 Albumin 3.2 L Globulin 4.0 H Albumin/Globulin Ratio 0.8 L Lipase 551 H Urine Color Urine Clarity Urine pH Ur Specific [place] Urine Protein Urine Glucose (UA) Urine Ketones Urine Blood Urine Nitrate Urine Bilirubin Urine Urobilinogen Ur Leukocyte Esterase Urine RBC (Auto) Urine Microscopic WBC Urine Bacteria Stool Occult Blood Blood Type B POSITIVE Antibody Screen Negative Crossmatch See Detail BBK History Checked Patient has bt 06/09/17 06/09/17 06/09/17 00:15 00:15 00:29 WBC RBC Hgb Hct MCV MCH MCHC RDW Plt Count MPV Neut % (Auto) Lymph % (Auto) Bartholomew % (Auto) Eos % (Auto) Baso % (Auto) Neut # (Auto) Lymph # (Auto) Bartholomew # (Auto) Eos # (Auto) Baso # (Auto) PT 12.6 INR 1.1 APTT 29.5 Sodium Potassium Chloride Carbon Dioxide Anion Gap BUN Creatinine Est GFR ( Amer) Est GFR (Non-Af Amer) POC Glucose (mg/dL) Random Glucose Lactic Acid 1.2 Calcium Phosphorus Magnesium Ferritin Total Bilirubin AST ALT Alkaline Phosphatase Troponin I NT-Pro-B Natriuret Pep Total Protein Albumin Globulin Albumin/Globulin Ratio Lipase Urine Color Urine Clarity Urine pH Ur Specific [place] Urine Protein Urine Glucose (UA) Urine Ketones Urine Blood Urine Nitrate Urine Bilirubin Urine Urobilinogen Ur Leukocyte Esterase Urine RBC (Auto) Urine Microscopic WBC Urine Bacteria Stool Occult Blood Negative Blood Type Antibody Screen Crossmatch BBK History Checked 06/09/17 06/09/17 06/09/17 15:32 15:41 16:00 WBC 5.8 RBC 3.47 L Hgb 10.2 L D Hct 30.8 L MCV 88.8 D MCH 29.3 MCHC 32.9 L RDW 14.8 H Plt Count 250 MPV 8.6 Neut % (Auto) 62.9 Lymph % (Auto) 19.3 L Bartholomew % (Auto) 13.4 H Eos % (Auto) 4.0 Baso % (Auto) 0.4 Neut # (Auto) 3.7 Lymph # (Auto) 1.1 Bartholomew # (Auto) 0.8 Eos # (Auto) 0.2 Baso # (Auto) 0.0 PT INR APTT Sodium 140 Potassium 5.0 Chloride 100 Carbon Dioxide 28 Anion Gap 17 BUN 50 H Creatinine 1.1 Est GFR ( Amer) > 60 Est GFR (Non-Af Amer) > 60 POC Glucose (mg/dL) 308 H Random Glucose 327 H Lactic Acid Calcium 9.8 Phosphorus Magnesium Ferritin Total Bilirubin 0.8 AST 117 H D ALT 161 H Alkaline Phosphatase 793 H Troponin I NT-Pro-B Natriuret Pep Total Protein 7.7 Albumin 3.4 L Globulin 4.3 H Albumin/Globulin Ratio 0.8 L Lipase Urine Color Urine Clarity Urine pH Ur Specific [place] Urine Protein Urine Glucose (UA) Urine Ketones Urine Blood Urine Nitrate Urine Bilirubin Urine Urobilinogen Ur Leukocyte Esterase Urine RBC (Auto) Urine Microscopic WBC Urine Bacteria Stool Occult Blood Blood Type Antibody Screen Crossmatch BBK History Checked 06/09/17 06/09/17 06/09/17 16:51 17:56 19:21 WBC RBC Hgb Hct MCV MCH MCHC RDW Plt Count MPV Neut % (Auto) Lymph % (Auto) Bartholomew % (Auto) Eos % (Auto) Baso % (Auto) Neut # (Auto) Lymph # (Auto) Bartholomew # (Auto) Eos # (Auto) Baso # (Auto) PT INR APTT Sodium Potassium Chloride Carbon Dioxide Anion Gap BUN Creatinine Est GFR ( Amer) Est GFR (Non-Af Amer) POC Glucose (mg/dL) 304 H 296 H Random Glucose Lactic Acid Calcium Phosphorus Magnesium Ferritin Total Bilirubin AST ALT Alkaline Phosphatase Troponin I NT-Pro-B Natriuret Pep Total Protein Albumin Globulin Albumin/Globulin Ratio Lipase Urine Color Yellow Urine Clarity Clear Urine pH 7.0 Ur Specific [place] 1.014 Urine Protein 30 Urine Glucose (UA) >=500 Urine Ketones Negative Urine Blood Negative Urine Nitrate Negative Urine Bilirubin Negative Urine Urobilinogen 0.2-1.0 Ur Leukocyte Esterase Neg Urine RBC (Auto) 4 H Urine Microscopic WBC < 1 Urine Bacteria Occ H Stool Occult Blood Blood Type Antibody Screen Crossmatch BBK History Checked Assessment & Plan (1) Anemia Assessment and Plan: s/p 2U PRBC elevated ferritin consistent with anemia of chronic disease will check retic count, b12, folate elevated globulin gap; will order w/u and can f/u as outpatient Status: Acute (2) Elevated serum globulin level Assessment and Plan: monoclonal protein w/u sent outpatient f/u Thank you for this interesting consult. Status: Acute
--- NOTE | 2017-06-09 22:16 | CARD ---
APPROVED REPORT EXAM: Two-dimensional and M-mode echocardiogram with Doppler and color Doppler. Other Information Quality : FairRhythm : NSR Technically limited study due to body habitus. INDICATION Pericardial Effusion Congestive Heart Failure 2D DIMENSIONS IVSd1.34 (0.7-1.1cm)LVDd4.63 (3.9-5.9cm) LVOT Diameter2.01 (1.8-2.4cm)PWd1.12 (0.7-1.1cm) LVDs4.18 (2.5-4.0cm)FS (%) 9.7 % LVEF (%)45.0 (>50%) M-Mode DIMENSIONS Left Atrium (MM)3.61 (2.5-4.0cm)IVSd1.60 (0.7-1.1cm) Aortic Root3.12 (2.2-3.7cm)LVDd4.61 (4.0-5.6cm) Aortic Cusp Exc.1.94 (1.5-2.0cm)PWd1.68 (0.7-1.1cm) FS (%) 17 %LVDs3.84 (2.0-3.8cm) Aortic Valve AI P 1/2 [id number] Mitral Valve MV E Nkskdmnl62.9cm/sMV A Sxvktxua689.2cm/sE/A ratio0.8 TDI Medial E' Peak V13.44cm/sE/Lateral E'0.0E/Medial E'5.9 Pulmonary Valve PV Peak Mxxixnmf227.7cm/s LEFT VENTRICLE The left ventricle is normal size. There is mild concentric left ventricular hypertrophy. The systolic function is mildly impaired. There is a flattened septum Transmitral Doppler flow pattern is Grade I-abnormal relaxation pattern. RIGHT VENTRICLE The right ventricle is normal size. There is normal right ventricular wall thickness. The right ventricular systolic function is normal. ATRIA The left atrium size is normal. The right atrium size is normal. AORTIC VALVE The aortic valve is severely thickened. There is mild to moderate aortic regurgitation. There is no aortic valvular stenosis. MITRAL VALVE The mitral valve is moderately thickened. There is no mitral valve stenosis. Mitral regurgitation is mild. TRICUSPID VALVE The tricuspid valve is normal in structure. There is no tricuspid valve regurgitation noted. PULMONIC VALVE The pulmonary valve is normal in structure. There is no pulmonic valvular regurgitation. GREAT VESSELS The aortic root is normal in size. The IVC is normal in size and collapses >50% with inspiration. PERICARDIAL EFFUSION There is a trace circumferential pericardial effusion. <Conclusion> The left ventricle is normal size. There is mild concentric left ventricular hypertrophy. The systolic function is mildly impaired. There is a flattened septum Transmitral Doppler flow pattern is Grade I-abnormal relaxation pattern. There is mild to moderate aortic regurgitation. Mitral regurgitation is mild.
--- NOTE | 2017-06-10 03:00 | CARD ---
APPROVED REPORT EKG Measurement Heart [id number] <Conclusion> Normal sinus rhythm Possible Left atrial enlargement Left ventricular hypertrophy with repolarization abnormality consider lateral ischemia Abnormal ECG
[2017-06-10 05:48] LABS: BASO % 0.5 % (0.0-2.0); EOS # 0.2 K/uL (0.0-0.7); HEMOGLOBIN 10.1 g/dL (12.0-18.0); LYMPH # 1.3 K/uL (1.0-4.3); LYMPH % 21.6 % (20.0-40.0); MEAN CELL VOLUME 89.5 fl (80.0-94.0); MEAN CORPUSCULAR HEMOGLOBIN 29.9 pg (27.0-31.0); MEAN CORPUSCULAR HGB CONC 33.4 g/dL (33.0-37.0); MEAN PLATELET VOLUME 9.2 fl (7.2-11.7); MONO # 0.8 K/uL (0.0-0.8); MONO % 12.3 % (0.0-10.0); NEUT # 3.9 K/uL (1.8-7.0); NEUT % 62.6 % (50.0-75.0); NRBC % 0.1 % (0.0-0.0); RBC 3.38 Mil/uL (4.40-5.90); RED CELL DISTRIBUTION WIDTH 15.3 % (11.5-14.5); WHITE BLOOD COUNT 6.2 K/uL (4.8-10.8)
[2017-06-10 06:16] LABS: B-TYPE NATRIURETIC PEPTIDE 4040 pg/ml (0-900)
[2017-06-10 06:31] LABS: ALB/GLOB RATIO 0.8 (1.0-2.1); ALBUMIN 3.4 g/dL (3.5-5.0); ALT/SGPT 201 U/L (21-72); AST/SGOT 210 U/L (17-59); BLOOD UREA NITROGEN 48 mg/dl (9-20); CALCIUM 9.8 mg/dL (8.4-10.2); GFR AFRICAN-AMERICAN > 60; GFR NON-AFRICAN AMERICAN > 60; LIPASE 479 U/L (23-300)
[2017-06-10] MEDS: Insulin Lispro (humaLOG) 100 Units/ml Inj SC SCH ×5 (06:58→16:52)
--- NOTE | 2017-06-10 07:56 | CP.PCM.PN ---
Subjective - Date & Time of Evaluation Date of Evaluation: 06/10/17 Time of Evaluation: 07:54 - Subjective Subjective: pt doing well. opens eye but is nonverbal. all consults appriciated. nof /c, n/v /d bw noted and hgb 10. pending pulm [facility] rocpehin started for infiltrate on cxr Objective - Vital Signs/Intake and Output Vital Signs (last 24 hours): Temp Pulse Resp BP Pulse Ox 98 F 96 H 18 154/73 H 94 L 06/10/17 04:47 06/10/17 04:47 06/10/17 04:47 06/10/17 04:47 06/10/17 04:47 Intake and Output: 06/10/17 06/10/17 06:59 18:59 Intake Total 850 Output Total 2 Balance 848 - Medications Medications: Current Medications Acetaminophen (Tylenol 325mg/10.15ml Ud) 650 mg GT Q4H PRN PRN Reason: Temp >100 Acetaminophen (Tylenol 325mg/10.15ml Ud) 650 mg GT Q4H PRN PRN Reason: Pain, Mild (1-3) Al Hydrox/Mg Hydrox/Simethicone (Maalox Plus 30 Ml) 30 ml PO Q4H PRN PRN Reason: heartburn/indigestion Amlodipine Besylate (Norvasc) 10 mg GT DAILY [facility] Last Admin: 06/09/17 09:26 Dose: 10 mg Aspirin (Aspirin) 325 mg GT DAILY [facility] Last Admin: 06/09/17 09:39 Dose: 325 mg Atorvastatin Calcium (Lipitor) 20 mg GT HS [facility] Last Admin: 06/09/17 09:30 Dose: 20 mg Carvedilol (Coreg) 12.5 mg GT Q12H [facility] Last Admin: 06/09/17 20:53 Dose: 12.5 mg Escitalopram Oxalate (Lexapro) 5 mg GT DAILY [facility] Last Admin: 06/09/17 09:31 Dose: 5 mg Famotidine (Pepcid) 20 mg PEG Q12 [facility] Last Admin: 06/09/17 23:18 Dose: 20 mg Heparin Sodium (Porcine) (Heparin) 5,000 units SC Q8H [facility] PRN Reason: Protocol Last Admin: 06/10/17 00:55 Dose: 5,000 units Ceftriaxone Sodium 1 gm/ (Sodium Chloride) 100 mls @ 100 mls/hr IVPB DAILY [facility] PRN Reason: Protocol Last Admin: 06/09/17 23:16 Dose: 100 mls/hr Insulin Human Lispro (Humalog) 0 units SC ACHS [facility] PRN Reason: Protocol Last Admin: 06/10/17 07:01 Dose: Not Given Lisinopril (Zestril) 20 mg GT DAILY [facility] Last Admin: 06/09/17 09:28 Dose: 20 mg Magnesium Hydroxide (Milk Of Magnesia) 30 ml PO DAILY PRN PRN Reason: Constipation Ondansetron HCl (Zofran Tab) 4 mg GT Q6H PRN PRN Reason: Nausea/Vomiting Pantoprazole Sodium (Protonix Susp) 40 mg GT DAILY [facility] Last Admin: 06/09/17 09:31 Dose: 40 mg Silver Sulfadiazine (Silvadene 1% 20 Gm) 1 ea TOP QSHIFT [facility] - Labs Labs: 06/10/17 04:20 06/10/17 04:20 PT 12.6 Seconds (9.8-13.1) 06/09/17 00:15 INR 1.1 (0.9-1.2) 06/09/17 00:15 APTT 29.5 Seconds (25.6-37.1) 06/09/17 00:15 - Constitutional Appears: Well, Non-toxic, No Acute Distress - Head Exam Head Exam: ATRAUMATIC, NORMAL INSPECTION, NORMOCEPHALIC - Eye Exam Eye Exam: EOMI, Normal appearance, PERRL Pupil Exam: NORMAL ACCOMODATION, PERRL - ENT Exam ENT Exam: Mucous Membranes Moist, Normal Exam - Neck Exam Neck Exam: Full ROM, Normal Inspection. absent: Lymphadenopathy - Respiratory Exam Respiratory Exam: Clear to Ausculation Bilateral, NORMAL BREATHING PATTERN - Cardiovascular Exam Cardiovascular Exam: REGULAR RHYTHM, RRR, +S1, +S2. absent: Murmur - GI/Abdominal Exam GI & Abdominal Exam: Soft, Normal Bowel Sounds. absent: Tenderness - Extremities Exam Extremities Exam: Full ROM, Normal Capillary Refill, Normal Inspection. absent : Joint Swelling, Pedal Edema - Back Exam Back Exam: NORMAL INSPECTION - Neurological Exam Neurological Exam: Abnormal Gait, Altered, Awake, CN II-XII Intact - Psychiatric Exam Psychiatric exam: Normal Affect, Normal Mood - Skin Skin Exam: Dry, Intact, Normal Color, Warm Assessment and Plan (1) Anemia Status: Acute (2) DVT prophylaxis Status: Acute (3) Elevated LFTs Status: Acute (4) Elevated brain natriuretic peptide (BNP) level Status: Acute - Assessment and Plan (Free Text) Assessment: (1) Anemia Assessment and Plan: 2 unit prbc heme/onc stool occult negative Status: Acute (2) DVT prophylaxis Assessment and Plan: scd and ae hose hold anticoag r/t anemia Status: Acute (3) Elevated LFTs Assessment and Plan: trending down, will monitor Status: Acute (4) Elevated brain natriuretic peptide (BNP) level Assessment and Plan: cardio consult monitor for chf pulm consult Status: Acute 5-infiltrate on cxr-pulm and cardio consult jagdish
[2017-06-10] MEDS: Pantoprazole 40 mg Susp UD GT SCH (10:18)
[2017-06-10] MEDS: Famotidine 40 MG/5 ML PEG SCH (10:19)
[2017-06-10 12:32] VITALS: TEMP 97.3
[2017-06-10 15:53] VITALS: BP 150/69; PULSE 86; RESP 18; O2SAT 99
--- NOTE | 2017-06-11 07:21 | CON ---
DATE: 06/10/2017 HISTORY OF PRESENT ILLNESS: Mr. Bustos is a 66-year-old male who was referred for Pulmonary evaluation by [facility]. He was admitted with anemia and referred for pulmonary evaluation because of abnormal chest x-ray. He has a history of cerebrovascular accident and is aphasic. He is also hypertensive, diabetic and recently found to have anemia. He is comfortable. Denies chest pain or shortness of breath and is responsive to touch, painful stimuli and nods his head in responsive to verbal commands. No other history is obtained. PHYSICAL EXAMINATION: GENERAL: The patient is alert, oriented, appears to be comfortable at present, in no apparent distress. VITAL SIGNS: Blood pressure of 154/73, pulse of 96, and respiratory rate is 18. He is afebrile, O2 sat 94% on room air. SKIN: Shows fair turgor. HEENT: Pupils equal and reactive to light and accommodation. Mouth shows fair hygiene. NECK: JVP flat. LUNGS: Clear. HEART: Regular. No murmurs or gallops. ABDOMEN: Soft, nontender. No organomegaly. EXTREMITIES: Show no edema or cyanosis. The patient is able to move all extremities. LABORATORY DATA: Remarkable for WBC of 6.2, hemoglobin of 10.1 post transfusion. Sodium 142, potassium 4.5, BUN 48, and creatinine 1.1. Serum glucose 247. Chest x-ray is remarkable for bilateral patchy pulmonary infiltrates, right lung was left. IMPRESSION AND PLAN: With pulmonary changes noted on x-ray, it could be secondary to aspiration following cerebrovascular accident, one have to see these as chronic changes with superimposed new pulmonary findings. Antibiotic therapy will be in order. Collection of sputum for gram stain and cultures will also be ordered. The patient may be discharged back to the longterm and should be followed and repeat chest x-ray should be done until pulmonary changes stabilize or improve. No further pulmonary intervention for now. We will sign off the case and see was. Tony Cid MD
--- NOTE | 2017-06-11 08:11 | CP.PCM.DIS ---
Provider - Provider Date of Admission: 06/09/17 01:50 Attending physician: Guilherme Jimenez MD Primary care physician: Vinay Koch Time Spent in preparation of Discharge (in minutes): 15 Diagnosis - Discharge Diagnosis (1) Anemia Status: Acute (2) DVT prophylaxis Status: Acute (3) Elevated LFTs Status: Acute (4) Elevated brain natriuretic peptide (BNP) level Status: Acute Hospital Course - Lab Results Lab Results: Micro Results 06/08/17 00:05 Blood Blood Culture - Preliminary NO GROWTH AFTER 48 HOURS 06/08/17 00:35 Blood Blood Culture - Preliminary NO GROWTH AFTER 48 HOURS Most Recent Lab Values WBC 6.2 K/uL (4.8-10.8) 06/10/17 04:20 RBC 3.38 Mil/uL (4.40-5.90) L 06/10/17 04:20 Hgb 10.1 g/dL (12.0-18.0) L 06/10/17 04:20 Hct 30.3 % (35.0-51.0) L 06/10/17 04:20 MCV 89.5 fl (80.0-94.0) 06/10/17 04:20 MCH 29.9 pg (27.0-31.0) 06/10/17 04:20 MCHC 33.4 g/dL (33.0-37.0) 06/10/17 04:20 RDW 15.3 % (11.5-14.5) H 06/10/17 04:20 Plt Count 271 K/uL (130-400) 06/10/17 04:20 MPV 9.2 fl (7.2-11.7) 06/10/17 04:20 Neut % (Auto) 62.6 % (50.0-75.0) 06/10/17 04:20 Lymph % (Auto) 21.6 % (20.0-40.0) 06/10/17 04:20 [place] % (Auto) 12.3 % (0.0-10.0) H 06/10/17 04:20 Eos % (Auto) 3.0 % (0.0-4.0) 06/10/17 04:20 Baso % (Auto) 0.5 % (0.0-2.0) 06/10/17 04:20 Neut # (Auto) 3.9 K/uL (1.8-7.0) 06/10/17 04:20 Lymph # (Auto) 1.3 K/uL (1.0-4.3) 06/10/17 04:20 [place] # (Auto) 0.8 K/uL (0.0-0.8) 06/10/17 04:20 Eos # (Auto) 0.2 K/uL (0.0-0.7) 06/10/17 04:20 Baso # (Auto) 0.0 K/uL (0.0-0.2) 06/10/17 04:20 Retic Count 2.3 % (0.5-1.5) H 06/10/17 04:20 PT 12.6 Seconds (9.8-13.1) 06/09/17 00:15 INR 1.1 (0.9-1.2) 06/09/17 00:15 APTT 29.5 Seconds (25.6-37.1) 06/09/17 00:15 Sodium 142 mmol/l (132-148) 06/10/17 04:20 Potassium 4.5 MMOL/L (3.6-5.0) 06/10/17 04:20 Chloride 101 mmol/L (98-107) 06/10/17 04:20 Carbon Dioxide 28 mmol/L (22-30) 06/10/17 04:20 Anion Gap 18 (10-20) 06/10/17 04:20 BUN 48 mg/dl (9-20) H 06/10/17 04:20 Creatinine 1.1 mg/dl (0.8-1.5) 06/10/17 04:20 Est GFR ( Amer) > 60 06/10/17 04:20 Est GFR (Non-Af Amer) > 60 06/10/17 04:20 POC Glucose (mg/dL) 281 mg/dL (65-110) H 06/10/17 15:43 Random Glucose 258 mg/dL (75-110) H 06/10/17 04:20 Lactic Acid 1.2 MMOL/L (0.7-2.1) 06/09/17 00:15 Calcium 9.8 mg/dL (8.4-10.2) 02/21/18 04:20 Phosphorus 4.9 mg/dl (2.5-4.5) H 06/09/17 00:15 Magnesium 2.3 MG/DL (1.6-2.3) 06/09/17 00:15 Ferritin 3340.0 ng/Ml (17.9-464) H 06/09/17 00:15 Total Bilirubin 0.7 mg/dl (0.2-1.3) 06/10/17 04:20 AST 210 U/L (17-59) H D 06/10/17 04:20 ALT 201 U/L (21-72) H D 06/10/17 04:20 Alkaline Phosphatase 865 U/L (38-126) H 06/10/17 04:20 Troponin I 0.0840 ng/mL (0.00-0.120) 06/09/17 00:15 NT-Pro-B Natriuret Pep 4040 pg/ml (0-900) H 06/10/17 04:20 Total Protein 7.8 G/DL (6.3-8.2) 06/10/17 04:20 Albumin 3.4 g/dL (3.5-5.0) L 06/10/17 04:20 Globulin 4.3 gm/dL (2.2-3.9) H 06/10/17 04:20 Albumin/Globulin Ratio 0.8 (1.0-2.1) L 06/10/17 04:20 Lipase 479 U/L (23-300) H 06/10/17 04:20 Vitamin B12 854 pg/mL (239-931) 06/10/17 04:20 Folate 15.0 ng/mL 06/10/17 04:20 Urine Color Yellow (YELLOW) 06/09/17 19:21 Urine Clarity Clear (Clear) 06/09/17 19:21 Urine pH 7.0 (5.0-8.0) 06/09/17 19:21 Ur Specific [place] 1.014 (1.003-1.030) 06/09/17 19:21 Urine Protein 30 mg/dL (NEGATIVE) 06/09/17 19:21 Urine Glucose (UA) >=500 mg/dL (Normal) 06/09/17 19:21 Urine Ketones Negative mg/dL (NEGATIVE) 02/20/18 19:21 Urine Blood Negative (NEGATIVE) 06/09/17 19:21 Urine Nitrate Negative (NEGATIVE) 06/09/17 19:21 Urine Bilirubin Negative (NEGATIVE) 06/09/17 19:21 Urine Urobilinogen 0.2-1.0 mg/dL (0.2-1.0) 06/09/17 19:21 Ur Leukocyte Esterase Neg Mindy/uL (Negative) 06/09/17 19:21 Urine RBC (Auto) 4 /hpf (0-3) H 06/09/17 19:21 Urine Microscopic WBC < 1 /hpf (0-5) 06/09/17 19:21 Urine Bacteria Occ (<OCC) H 06/09/17 19:21 Stool Occult Blood Negative (NEGATIVE) 06/09/17 00:29 Blood Type B POSITIVE 06/09/17 00:02 Antibody Screen Negative 06/09/17 00:02 Crossmatch See Detail 06/09/17 00:02 BBK History Checked Patient has bt 06/09/17 00:02 - Hospital Course Hospital Course: rocephin 2units prbc cardio, heme/onc, pulm consults Discharge Exam - Head Exam Head Exam: ATRAUMATIC, NORMAL INSPECTION, NORMOCEPHALIC Discharge Plan - Discharge Medications Prescriptions: cefTRIAXone 1 gm [Rocephin 1 gram IVPB] 1 gm IVPB DAILY #7 bag - Follow Up Plan Condition: GUARDED Disposition: TRANSF TO SNF Instructions: Anemia of Chronic Disease (DC) Additional Instructions: final dx-anemia of chronic disease, pleural infiltrate, h/o cva cleared by consultants for dc and outpt workup rocephin x 1 wk. f/u [facility] in [place], rted prn, meds per med rec Referrals: Vinay Koch MD [Primary Care Provider] -
== END 2017-06-10 18:30 ==
LOC: H.ER 22:31 → H.ERHOLD 06-09 01:50 → H.TEL 06-09 21:34
PROVIDERS: ADMIT Family Medicine; ATTEND Family Medicine
DX: D64.9 Anemia, unspecified (principal); E11.9 Type 2 diabetes mellitus without complications; I10 Essential (primary) hypertension; I69.320 Aphasia following cerebral infarction; F32.9 Major depressive disorder, single episode, unspecified; R79.89 Other specified abnormal findings of blood chemistry; R94.5 Abnormal results of liver function studies; R91.8 Other nonspecific abnormal finding of lung field
CPT/HCPCS: 36415; 36430; 71045; 80053; 81003; 82607; 82728; 82746; 82948; 83605; 83690; 83735; 83880; 83883; 84100; 84155; 84165; 84484; 85025; 85044; 85610; 85730; 86334; 86850; 86900; 86920; 86921; 86922; 87040; 87086; 93005; 93306; 96372; 99285; G0328; G0378; J0696; J1644; P9051